=== PATIENT | male | born 1950 | race Caucasian/White ===

== ENCOUNTER → 2018-05-27 07:40 | Outpatient (CLI) | payer MEDICARE, OTHER, SELFPAY ==
[2018-05-27 08:11] LABS: Add Manual Diff / Slide Review NO; Basophils Percent Auto 0.4 % (0-2); Eosinophils Percent Auto 1.9 % (2-4); Hematocrit 43.5 % (41-53); Hemoglobin 14.7 g/dL (13.5-17.5); Lymphocytes Percent Auto 26.6 % (25-40); Mean Corpuscular HGB Conc 33.8 % (30-36); Mean Corpuscular Hemoglobin 30.2 PG (26-34); Mean Corpuscular Volume 89.3 fL (80-100); Monocytes Percent Auto 7.7 % (3-14); Neutrophils Absolute Auto 4400 /uL (3000-5900); Neutrophils Percent Auto 63.4 % (50-75); Platelet Count 218 X10^3/uL (150-400); Red Blood Cell Count 4.86 X10^6/uL (4.5-5.9); Red Cell Distribution Width 14.4 % (11.6-14.8)
[2018-05-27 08:24] LABS: Alanine Aminotransferase 29 IU/L (21-72); Albumin 4.1 g/dL (3.5-5.0); Albumin Globulin Ratio 1.2 (1.0-2.8); Alkaline Phosphatase 88 U/L (38-126); Aspartate Aminotransferase 26 IU/L (17-59); BUN Creatinine Ratio 17.3 (6-22); Blood Urea Nitrogen 19 mg/dL (9-20); Calcium 9.5 mg/dL (8.4-10.2); Carbon Dioxide 27 mmol/L (22-32); Chloride 105 mmol/L (98-107); Cholesterol 154 mg/dL (140-199); Estimated Glomerular Filt Rate > 60.0 mL/min (>60); Globulin 3.3 g/dL (1.7-4.1); Glucose 102 mg/dL (80-110); HDL Cholesterol 61 mg/dL (40-60); HEMOLYSIS < 15 (0-50); LDL Cholesterol Calculated 80 mg/dL (<100); Potassium 4.2 mmol/L (3.4-5.1); Sodium 142 mmol/L (137-145); Total Protein 7.4 g/dL (6.3-8.2); Triglycerides 64 mg/dL (35-150)
[2018-05-27 09:19] LABS: Thyroid Stimulating Hormone 4.46 uIU/mL (0.47-4.68)
== END ==
PROVIDERS: Family Provider Family Medicine; PCP Family Medicine; Visit Provider Family Medicine
DX: E78.5 Hyperlipidemia, unspecified (principal); I10 Essential (primary) hypertension
CPT/HCPCS: 36415; 80053; 80061; 84443; 85025

== ENCOUNTER → 2018-12-27 08:29 | Outpatient (CLI) | payer MEDICARE, OTHER, SELFPAY ==
[2018-12-27 11:49] LABS: Add Manual Diff / Slide Review NO; Basophils Absolute Auto 300 /uL (0-100); Basophils Percent Auto 4.6 % (0-2); Eosinophils Absolute Auto 100 /uL (0-450); Eosinophils Percent Auto 2.2 % (2-4); Hematocrit 42.8 % (41-53); Hemoglobin 14.3 g/dL (13.5-17.5); Lymphocytes Absolute Auto 1500 /uL (1100-4500); Lymphocytes Percent Auto 22.9 % (25-40); Mean Corpuscular HGB Conc 33.5 % (30-36); Mean Corpuscular Hemoglobin 29.9 PG (26-34); Mean Corpuscular Volume 89.3 fL (80-100); Monocytes Absolute Auto 500 /uL (0-900); Monocytes Percent Auto 7.7 % (3-14); Neutrophils Absolute Auto 4100 /uL (1500-7000); Neutrophils Percent Auto 62.6 % (50-75); Platelet Count 224 X10^3/uL (150-400); Red Cell Distribution Width 14.1 % (11.6-14.8); White Blood Cell Count 6.6 X10^3/uL (4.5-11.0)
[2018-12-27 12:17] LABS: Alanine Aminotransferase 31 IU/L (21-72); Albumin 4.3 g/dL (3.5-5.0); Albumin Globulin Ratio 1.3 (1.0-2.8); Alkaline Phosphatase 76 U/L (38-126); Aspartate Aminotransferase 28 IU/L (17-59); BUN Creatinine Ratio 20.8 (6-22); Bilirubin Total 0.8 mg/dL (0.2-1.3); Blood Urea Nitrogen 25 mg/dL (9-20); Calcium 9.7 mg/dL (8.4-10.2); Carbon Dioxide 27 mmol/L (22-32); Chloride 103 mmol/L (98-107); Cholesterol 160 mg/dL (140-199); Estimated Glomerular Filt Rate > 60.0 mL/min (>60); Globulin 3.3 g/dL (1.7-4.1); Glucose 87 mg/dL (80-110); HDL Cholesterol 59 mg/dL (40-60); HEMOLYSIS < 15 (0-50); LDL Cholesterol Calculated 90 mg/dL (<100); Potassium 4.4 mmol/L (3.4-5.1); Sodium 140 mmol/L (137-145); Total Protein 7.6 g/dL (6.3-8.2); Triglycerides 53 mg/dL (35-150)
[2018-12-27 12:36] LABS: TSH w/ Reflex to FT4 3.79 uIU/mL (0.47-4.68)
[2018-12-27 12:37] LABS: Prostate Specific Antigen Scrn 0.642 ng/mL (0.1-4.0)
== END ==
PROVIDERS: Family Provider Family Medicine; PCP Family Medicine; Visit Provider Family Medicine
DX: E78.5 Hyperlipidemia, unspecified (principal); I10 Essential (primary) hypertension; N40.0 Benign prostatic hyperplasia without lower urinary tract symptoms
CPT/HCPCS: 36415; 80053; 80061; 84443; 85025; G0103

== ENCOUNTER → 2019-02-01 11:04 | Outpatient (CLI) | payer MEDICARE, OTHER, SELFPAY ==
--- NOTE | 2019-02-01 | DI.CT.S_ITS ---
PROCEDURE: CT KIDNEY URETER BLADDER (KUB) INDICATIONS: KIDNEY STONES TECHNIQUE: Noncontrast 5 mm thick sections acquired from the diaphragms to the symphysis. 5 mm thick coronal and sagittal reformats were then performed. For radiation dose reduction, the following was used: automated exposure control, adjustment of mA and/or kV according to patient size. COMPARISON: [facility], CT, KIDNEY/ URETER/BLADDER, 06/22/2013, 12:30. FINDINGS: Image quality: There is metallic streak artifact from patient's left hip prosthesis. Lung bases: There is mild scarring or atelectasis in the lung bases. Heart size is normal. There is a small hiatal hernia. Urinary system: There are multiple bilateral nonobstructing renal stones, approximately 8 on the right with the largest measuring up to 1 cm and 3 on the left with the largest measuring up to 2 mm. No evidence of hydronephrosis. There is nonspecific perinephric stranding bilaterally. An ovoid slightly hyperdense lesion is demonstrated within the right kidney measuring up to 2.0 cm suggestive of a hyperdense cyst versus a solid mass. There are a few cysts within the left kidney measuring up to 4.6 cm. Both ureters appear non-dilated throughout their expected courses. No calcified bladder stones. There is mild concentric bladder wall thickening. Other solid organs: Noncontrast evaluation of the liver demonstrates no focal hepatic lesions. The gallbladder appears within normal limits without calcified gallstones. Pancreas is normal in contours. Spleen is normal in size. No adrenal nodules. Peritoneum and bowel: Unenhanced bowel loops demonstrate normal wall thickness and caliber. The appendix is normal in appearance. There is colonic diverticulosis without acute diverticulitis. No free fluid or air. Nodes and vessels: No retroperitoneal or mesenteric adenopathy by size criteria. Aorta and inferior vena cava are normal in caliber. Abdominal wall: No ventral hernias. Pelvis: No free pelvic fluid. No inguinal hernias or adenopathy. Bones: No suspicious bony lesions. There is a left hip prosthesis partially visualized. Periarticular heterotopic ossification is demonstrated around the left hip. Moderate to severe degeneration is demonstrated in the right hip. No vertebral body compression fractures. IMPRESSION: 1. Bilateral nephrolithiasis without evidence of obstructive uropathy. 2. Hyperdense lesion in the right kidney consistent with a hyperdense cyst or renal mass. Further evaluation may be obtained with renal ultrasound or a renal mass protocol CT or MRI. 3. No evidence of appendicitis. 4. Colonic diverticulosis without acute diverticulitis. Dictated by: Vic Rahman M.D. on 02/01/2019 at 13:55 Approved by: Vic Rahman M.D. on 02/01/2019 at 14:18
== END ==
PROVIDERS: Family Provider Family Medicine; PCP Family Medicine; Visit Provider Urology
DX: N20.0 Calculus of kidney (principal); N28.1 Cyst of kidney, acquired; K44.0 Diaphragmatic hernia with obstruction, without gangrene; K57.90 Diverticulosis of intestine, part unspecified, without perforation or abscess without bleeding; M16.11 Unilateral primary osteoarthritis, right hip; Z96.642 Presence of left artificial hip joint
CPT/HCPCS: 74176

== ENCOUNTER → 2020-07-05 14:02 | Outpatient (CLI) | payer MEDICARE, OTHER, SELFPAY ==
--- NOTE | 2020-07-05 14:04 | DI.RAD.S_ITS ---
PROCEDURE: XR LUMBAR SPINE MIN 4V INDICATIONS: lbp TECHNIQUE: 5 views of the lumbar spine were acquired. COMPARISON: None. FINDINGS: Bones: 5 nonrib-bearing vertebrae are present. There is normal bony alignment. No vertebral body compression fractures. No suspicious bony lesions. There is moderate disc space narrowing at L3-L4, and mild disc space narrowing at L2-L3, L4-L5 and L5-S1. Moderate to severe facet arthropathy at L4-L5 and L5-S1. Note is made of left hip arthroplasty. Moderate right hip joint degeneration is present. Soft tissues: Overlying bowel gas pattern is normal. No suspicious soft tissue calcifications. Oblique images: No pars defects. 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 Dictated by: Dena Graham M.D. on 07/05/2020 at 17:44 Approved by: Dena Graham M.D. on 07/05/2020 at 17:45
--- NOTE | 2020-07-05 14:04 | DI.RAD.S_ITS ---
PROCEDURE: XR HIP W PEL IF DONE LT 2V INDICATIONS: left hip pain TECHNIQUE: AP pelvis and lateral view of the 2 hip acquired. COMPARISON: [facility], CT, KIDNEY/ URETER/BLADDER, 06/22/2013, 12:30. FINDINGS: Bones: Patient is status post left hip arthroplasty, with hardware components in expected positions. The hip joint appears congruent. The visualized bony structures appear intact. Healed fracture deformity of the left proximal femur. Dystrophic calcification adjacent to the superior aspect of the left femur. Soft tissues: Overlying postoperative changes are noted. No suspicious soft tissue densities. Right inguinal canal surgical clips. IMPRESSION: 1. Stable positioning of left hip arthroplasty. 2. Healed fracture deformity of proximal left femoral shaft. Dictated by: Paulo Joseph RRA Interpreted: Renea Dumont MD on 07/05/2020 at 14:55 Approved by: Renea Dumont MD, PhD on 07/05/2020 at 17:22
== END ==
PROVIDERS: Family Provider Family Medicine; PCP Family Medicine; Referring Provider Physical Medicine & Rehabilitation; Visit Provider Physical Medicine & Rehabilitation
DX: M25.552 Pain in left hip (principal); M54.5 Low back pain; Z96.642 Presence of left artificial hip joint; Z87.81 Personal history of (healed) traumatic fracture
CPT/HCPCS: 72110; 73502

== ENCOUNTER → 2020-07-07 10:18 | Outpatient (CLI) | payer MEDICARE, OTHER, SELFPAY ==
[2020-07-07 12:01] LABS: Add Manual Diff / Slide Review NO; Basophils Absolute Auto 0 /uL (0-100); Basophils Percent Auto 0.6 % (0-2); Eosinophils Absolute Auto 100 /uL (0-450); Eosinophils Percent Auto 1.5 % (2-4); Hematocrit 41.4 % (41-53); Hemoglobin 13.9 g/dL (13.5-17.5); Lymphocytes Absolute Auto 2100 /uL (1100-4500); Lymphocytes Percent Auto 34.2 % (25-40); Mean Corpuscular HGB Conc 33.5 % (30-36); Mean Corpuscular Hemoglobin 29.7 PG (26-34); Mean Corpuscular Volume 88.6 fL (80-100); Monocytes Absolute Auto 400 /uL (0-900); Monocytes Percent Auto 6.9 % (3-14); Neutrophils Absolute Auto 3400 /uL (1500-7000); Neutrophils Percent Auto 56.8 % (50-75); Platelet Count 217 X10^3/uL (150-400); Red Blood Cell Count 4.67 X10^6/uL (4.5-5.9); Red Cell Distribution Width 15.4 % (11.6-14.8)
[2020-07-07 12:21] LABS: Alanine Aminotransferase 40 IU/L (<50); Albumin 4.2 g/dL (3.5-5.0); Albumin Globulin Ratio 1.1 (1.0-2.8); Alkaline Phosphatase 99 U/L (38-126); Aspartate Aminotransferase 42 IU/L (17-59); BUN Creatinine Ratio 18.5 (6-22); Blood Urea Nitrogen 20 mg/dL (9-20); Calcium 9.8 mg/dL (8.4-10.2); Carbon Dioxide 26 mmol/L (22-32); Chloride 105 mmol/L (98-107); Estimated Glomerular Filt Rate > 60.0 mL/min (>60); Globulin 3.8 g/dL (1.7-4.1); Glucose 102 mg/dL (80-110); HEMOLYSIS < 15 (0-50); Potassium 4.5 mmol/L (3.4-5.1); Sodium 137 mmol/L (137-145)
== END ==
PROVIDERS: Family Provider Family Medicine; PCP Family Medicine; Referring Provider Family Medicine; Visit Provider Family Medicine
DX: E78.5 Hyperlipidemia, unspecified (principal); G45.9 Transient cerebral ischemic attack, unspecified; I10 Essential (primary) hypertension
CPT/HCPCS: 36415; 80053; 84443; 85025

== ENCOUNTER → 2020-08-17 08:47 | Outpatient (CLI) | payer MEDICARE, OTHER, SELFPAY ==
[2020-08-17 09:36] LABS: Add Manual Diff / Slide Review NO; Basophils Absolute Auto 0 /uL (0-100); Basophils Percent Auto 0.5 % (0-2); Eosinophils Absolute Auto 200 /uL (0-450); Eosinophils Percent Auto 2.5 % (2-4); Hematocrit 42.3 % (41-53); Hemoglobin 14.2 g/dL (13.5-17.5); Lymphocytes Absolute Auto 2200 /uL (1100-4500); Mean Corpuscular HGB Conc 33.6 % (30-36); Mean Corpuscular Hemoglobin 29.9 PG (26-34); Monocytes Absolute Auto 600 /uL (0-900); Monocytes Percent Auto 9.3 % (3-14); Neutrophils Absolute Auto 3400 /uL (1500-7000); Neutrophils Percent Auto 53.7 % (50-75); Platelet Count 230 X10^3/uL (150-400); Red Blood Cell Count 4.75 X10^6/uL (4.5-5.9); Red Cell Distribution Width 15.2 % (11.6-14.8); White Blood Cell Count 6.4 X10^3/uL (4.5-11.0)
[2020-08-17 10:00] LABS: Erythrocyte Sedimentation Rate 19 MM/HR (0-15)
[2020-08-17 10:07] LABS: C-Reactive Protein Quant 0.7 mg/dL (<1.0)
== END ==
PROVIDERS: Family Provider Family Medicine; PCP Family Medicine; Referring Provider Family Medicine; Visit Provider Family Medicine
DX: M25.552 Pain in left hip (principal); M54.16 Radiculopathy, lumbar region; M54.5 Low back pain
CPT/HCPCS: 36415; 85025; 85651; 86140

== ENCOUNTER → 2020-08-20 17:46 | Outpatient (CLI) | payer MEDICARE, OTHER, SELFPAY ==
--- NOTE | 2020-08-20 17:47 | DI.MRI.S_ITS ---
PROCEDURE: MR LUMBAR SPINE WO CON INDICATIONS: lumbar pain TECHNIQUE: Noncontrast sagittal T1 spin echo through the lumbar spine. Patient requested termination of the study prior to acquisition of additional sequences and planes secondary to pain COMPARISON: [facility], CR, XR LUMBAR SPINE MIN 4V, 07/05/2020, 13:31. FINDINGS: Image quality: Excellent. Alignment and Curvature: There is normal bony alignment. Bone Marrow: Mild reactive endplate changes noted adjacent the L3-L4 and L4-L5 discs. Small, benign, intraosseous hemangioma noted in the L2 vertebral body. Schmorl's nodes noted in the inferior plate of the L2, inferior endplate of L3 and superior endplate of the L4 vertebral bodies.. No acute vertebral body compression fractures. Spinal Cord: Conus medullaris terminates at the L1-L2 disc level. Visualized cord demonstrates normal signal and size. Paraspinous Soft Tissues: No paravertebral masses. L1-L2: Loss of disc signal. Mild, diffuse disc bulge. No central stenosis. Moderate bilateral neural foraminal narrowing. No neural compression. L2-L3: Loss of disc signal. Mild, diffuse disc bulge. No central stenosis. Moderate bilateral neural foraminal narrowing. No neural compression. L3-L4: Loss of disc signal and height. Moderate, diffuse disc bulge. [id number]-[id number] narrowing of the central canal. Moderate to severe right and moderate left neural foraminal narrowing with slight compression of the exiting right L3 nerve root. L4-L5: Loss of disc signal. Mild, diffuse disc bulge. Large left foraminal disc extrusion. Mild bilateral facet hypertrophy. Mild to moderate narrowing of the central canal. Moderate to severe right and severe left neural foraminal narrowing with slight compression of the exiting right L4 nerve root and marked compression of the exiting left L4 nerve root. L5-S1: Loss of disc signal and height. Mild, diffuse disc bulge. Mild bilateral facet hypertrophy. No central stenosis. Moderate bilateral neural foraminal narrowing. No neural compression. IMPRESSION: 1. Limited study secondary to patient requesting termination of the examination prior to complete image acquisition. 2. Multilevel degenerative disease. 3. Multilevel facet arthropathy. 4. Large left foraminal L4-L5 disc extrusion which causes severe left L4-L5 neural foraminal narrowing and compression of the exiting left L4 nerve root. 5. No significant central canal narrowing. 6. Moderate to severe right L3-L4 neural foraminal narrowing with compression of the exiting right L3 nerve root. Moderate to severe right and severe left L4-L5 neural foraminal narrowing with compression of the exiting L4 nerve roots. Dictated by: Renea Dumont MD, PhD on 08/21/2020 at 10:35 Approved by: Renea Dumont MD, PhD on 08/21/2020 at 10:55
== END ==
PROVIDERS: Family Provider Family Medicine; PCP Family Medicine; Referring Provider Family Medicine; Visit Provider Family Medicine
DX: M25.552 Pain in left hip (principal); M54.5 Low back pain; M51.16 Intervertebral disc disorders with radiculopathy, lumbar region; M48.061 Spinal stenosis, lumbar region without neurogenic claudication; M47.26 Other spondylosis with radiculopathy, lumbar region; M47.27 Other spondylosis with radiculopathy, lumbosacral region; M48.07 Spinal stenosis, lumbosacral region; M51.17 Intervertebral disc disorders with radiculopathy, lumbosacral region
CPT/HCPCS: 72148

== ENCOUNTER → 2020-09-27 10:18 | Outpatient (CLI) | payer MEDICARE, OTHER, SELFPAY ==
[2020-09-27 11:25] LABS: Add Manual Diff / Slide Review NO; Basophils Absolute Auto 0 /uL (0-100); Basophils Percent Auto 0.3 % (0-2); Eosinophils Absolute Auto 100 /uL (0-450); Eosinophils Percent Auto 1.5 % (2-4); Hematocrit 41.5 % (41-53); Hemoglobin 13.9 g/dL (13.5-17.5); Lymphocytes Absolute Auto 2200 /uL (1100-4500); Lymphocytes Percent Auto 32.9 % (25-40); Mean Corpuscular HGB Conc 33.5 % (30-36); Mean Corpuscular Hemoglobin 30.1 PG (26-34); Mean Corpuscular Volume 89.8 fL (80-100); Monocytes Absolute Auto 500 /uL (0-900); Monocytes Percent Auto 7.9 % (3-14); Neutrophils Absolute Auto 3900 /uL (1500-7000); Neutrophils Percent Auto 57.4 % (50-75); Platelet Count 230 X10^3/uL (150-400); Red Blood Cell Count 4.62 X10^6/uL (4.5-5.9); Red Cell Distribution Width 14.4 % (11.6-14.8); White Blood Cell Count 6.8 X10^3/uL (4.5-11.0)
[2020-09-27 11:33] LABS: BUN Creatinine Ratio 23.5 (6-22); Blood Urea Nitrogen 24 mg/dL (9-20); Calcium 9.7 mg/dL (8.4-10.2); Carbon Dioxide 27 mmol/L (22-32); Chloride 107 mmol/L (98-107); Estimated Glomerular Filt Rate > 60.0 mL/min (>60); Glucose 100 mg/dL (80-110); HEMOLYSIS < 15 (0-50); Potassium 4.9 mmol/L (3.4-5.1); Sodium 139 mmol/L (137-145)
== END ==
PROVIDERS: Family Provider Family Medicine; PCP Family Medicine; Referring Provider Orthopaedic Surgery; Visit Provider Orthopaedic Surgery
DX: Z01.818 Encounter for other preprocedural examination (principal); Z01.812 Encounter for preprocedural laboratory examination
CPT/HCPCS: 36415; 80048; 85025; 93005

== ENCOUNTER → 2020-10-10 08:27 | Outpatient (CLI) | payer MEDICARE, OTHER, SELFPAY ==
[2020-10-10 11:34] LABS: COVID19 -Nasal RAPID Negative (Negative)
== END ==
PROVIDERS: Family Provider Family Medicine; PCP Family Medicine; Visit Provider Physician Assistant
DX: Z11.59 Encounter for screening for other viral diseases (principal)
CPT/HCPCS: 87635

== ENCOUNTER → 2020-10-11 07:58 | Outpatient (CLI) | payer MEDICARE, OTHER, SELFPAY ==
--- NOTE | 2020-10-11 09:06 | PM.TREADMILL ---
Cardiac Stress Test Report Referral & Results Date Patient Seen: 10/11/20 Time Patient Seen: 09:00 Requesting provider: Carlos Sykes Indication: Pre-operative clearance; h/o STEMI Rest ECG: NSR Procedure Note: Patient presented with significant orthopedic issues that severely limited his ability to walk. We converted this to a resting Lexiscan. After both written and verbal informed consent the patient had an IV started by the diagnostic imaging RN, and then was hooked up to the treadmill monitoring system. The Lexiscan material, and then the Cardiolite tracer, were administered sequentially. An additional 3 min was spent monitoring the patient while supine on the gurney. The patient had a normal response to all infused materials. No signs or symptoms of angina. Frequent PVCs developed after materials injected. Impression: Successful Abiola protocol. Will await perfusion imaging. Please note: Actual ECG tracings can be found in the PACS system.
--- NOTE | 2020-10-12 18:18 | DI.NM.S_ITS ---
DATE OF SERVICE: 10/11/2020 PROCEDURE PERFORMED: Vasodilator pharmacologic stress and rest myocardial perfusion imaging with gating to assess ejection fraction and regional wall motion. ORDERING PROVIDER: Dr. Carlos Sykes. INDICATIONS: The patient is a 70-year-old male with an abnormal ECG requiring preoperative clearance prior to back surgery. CARDIAC STRESS: Per protocol, 0.4 mg of regadenoson was infused with a normal hemodynamic response. He had no chest discomfort. His resting ECG shows left axis deviation, but is otherwise normal. There are no significant ST-segment shifts with stress. He had occasional PVCs, briefly in a bigeminal pattern, but no complex ventricular ectopy. Per protocol, 27.4 millicuries of technetium-99m Myoview was injected and he was imaged 15 minutes later using a gated SPECT acquisition protocol. He returned the following day and was reinjected with an additional 26.2 millicuries of technetium-99m Myoview and was imaged 30 minutes later, again using a gated SPECT acquisition protocol. FINDINGS: 1. Raw data: There is fair myocardial tracer uptake. Lung/heart ratio is normal at 0.32 with a normal TID ratio 0.94. 2. Quantitated gated SPECT: Post-stress ejection fraction is estimated at 65% without any focal wall motion abnormality. Resting ejection fraction is estimated at 61% with a mildly increased resting end-diastolic volume of 132 mL. 3. Myocardial perfusion imaging: Post-stress supine images show a normal perfusion pattern without any concerning perfusion defects. The resting images show no areas of improvement. No prone images were available. IMPRESSION: 1. Normal myocardial perfusion study. 2. No evidence of myocardial ischemia or previous myocardial infarction. 3. Normal left ventricular systolic function without focal wall motion abnormality. Left ventricular volumes are at the upper limits of normal. 4. No angina or ECG evidence of ischemia with pharmacologic vasodilator stress. He had occasional PVCs, briefly in a bigeminal pattern, but no concerning complex ventricular ectopy. Jayme Lacey - BYRON/david/tiffanie doc#: [id number]/job#: [id number] dd: 10/12/2020 12:45:00 dt: 10/12/2020 17:45:00 DICTATING MD/COPIES TO: Ayden Adorno MD; Carlos Sykes MD COPIES MNE: CARMINA;
== END ==
PROVIDERS: Family Provider Family Medicine; PCP Family Medicine; Referring Provider Family Medicine; Visit Provider Family Medicine
DX: I21.19 ST elevation (STEMI) myocardial infarction involving other coronary artery of inferior wall (principal)
CPT/HCPCS: 78452; 93016; 93017; 93018; A9502; J2785

== ENCOUNTER → 2020-11-17 08:35 | Outpatient (CLI) | payer MEDICARE, OTHER, SELFPAY ==
[2020-11-17 11:07] LABS: COVID19 -Nasal RAPID Negative (Negative)
== END ==
PROVIDERS: Family Provider Family Medicine; PCP Family Medicine; Visit Provider Nurse Practitioner
DX: Z01.812 Encounter for preprocedural laboratory examination (principal); Z20.828 Contact with and (suspected) exposure to other viral communicable diseases
CPT/HCPCS: 87635; C9803

== ENCOUNTER 2020-11-20 06:14 | Day surgery (SDC) | payer MEDICARE, OTHER, SELFPAY ==
[2020-11-14 14:53] VITALS: BMI 34.0
[2020-11-20] VITALS (8 sets, daily range): BP systolic 83–160; BP diastolic 50–86; PULSE 52–58; RESP 10–16; TEMP 36.2–36.7; O2SAT 92–97; BMI 34.0
--- NOTE | 2020-11-20 | DI.RAD.S_ITS ---
PROCEDURE: XR LUMBAR SPINE 2-3V INDICATIONS: DISCECTOMY TECHNIQUE: 2 views of the lumbar spine were acquired. COMPARISON: [facility], MR, MR LUMBAR SPINE WITHOUT CONTRAST, 09/24/2020, 6:58. [facility], CR, XR LUMBAR SPINE MIN 4V, 07/05/2020, 13:31. FINDINGS: 2 spot fluoroscopic intraoperative images demonstrating surgical instrumentation with the tips projecting in the posterior paraspinal soft tissues at the level of L4-L5. Dictated by: Louis Mart M.D. on 11/20/2020 at 13:46 Approved by: Louis Mart M.D. on 11/20/2020 at 14:01
[2020-11-20] MEDS: LACTATED RINGERS 1,000 ML 42 ML IV ×2 (06:44→09:37)
--- NOTE | 2020-11-20 07:06 | PM.PREOP ---
Pre-operative Note COVID-19 COVID-19 status: Negative Result date/Date tested (Pos, Neg/Pending): 11/17/20 Interval Note History & Physical reviewed/Exam performed by Physician: Yes Changes to H&P: No
[2020-11-20] MEDS: ACETAMINOPHEN 325 MG TABLET 975 MG PO (07:12)
[2020-11-20] MEDS: CEFAZOLIN 2 GM/100 ML FROZ.PIGGY IV (08:15)
[2020-11-20] MEDS: THROMBIN (RECOMBINANT) 5,000 UNIT VIAL 5000 UNIT TOP (08:49)
[2020-11-20] MEDS: BUPIVACAINE 0.25% (PF) 8 ML, fentaNYL 100 MCG INJ (08:49)
[2020-11-20] MEDS: SODIUM CHLORIDE 0.9% 1,000 ML, GENTAMICIN 80 MG IRR (08:50)
[2020-11-20] MEDS: VANCOMYCIN 1,000 MG VIAL 1000 MG TOP (08:52)
--- NOTE | 2020-11-20 10:02 | PM.OP.1 ---
Operative Date/Time/Diagnoses Date of procedure: 11/20/20 Time of procedure: 10:02 Pre-op diagnosis: L4-5 disc herniation with radiculopathy Post-op diagnosis: same Procedure & Clinicians Procedure: Left L4-5 far lateral diskectomy Use of microscope Placement of epidural catheter Same procedure as scheduled: Yes Indications: [age] old male with intractable symptoms from a far lateral disc herniation at L4-5. They had failed conservative management and requested operative intervention. Risks and benefits of surgery were discussed and appropriate consents were obtained. Surgeon: Andres Hines Cranberry Grower: Rona Pablo Anesthesia Type: General Operative Notes Findings: None Closure Type: primary Specimen(s): none sent Estimated Blood Loss (mL): 10 Procedure in detail: Patient was brought to the operating room and intubated on the table. A time-out was performed. There were rolled over the well-padded prone position on the Iggy table. The back was prepped and draped in standard sterile fashion. Preoperative antibiotics were given. Using fluoroscopy, a 3 cm incision was made to the well marked left of the midline at the L4-5 level, starting lateral to the facets on the AP x-ray. We used Bovie to come down to and split the fascia. We then used the NuVasive MaXcess dilators with fluoroscopy and then opened our retractors, docking them on the L3-4 and L4-5 facets. The soft tissue was cleared off with Bovie, a marker was placed, an x-ray was taken to confirm positioning. We then brought in the microscope. We continued to clear off until we could visualize the pars. The bur was used to remove part of the undersurface of the L3-4 facet as well as the superior aspect of the L4-5 facet. We used a curette to free up the transverse ligament and peel this back and removed with a Kerrison. The nerve root was completely in the middle the field and carefully dissected away until we could retracted expose the disc underneath. An annulotomy was performed and a pituitary was used to perform a diskectomy. We also used a Kerrison to undermined the superior aspect of the facet as well as underneath the pars until the neural foramen was wide open.. The ball probe was swept underneath the dura along the disc to make sure there were no further loose fragments. This was also placed into the disc and moved around to make sure there were no further loose fragments. Once everything was adequately decompressed, the wound was copiously irrigated. An epidural catheter was filled with 100 mcg of fentanyl and 8 mL of 0.25% Marcaine. The dura was carefully advanced through the foramen into the canal and the catheter was advanced 6 cm cephalad. The retractor was removed and the fascia was closed. The epidural catheter was then injected without resistance and removed. Vancomycin powder was placed in the wound. Superficial and skin were closed. Sterile dressing was placed. The patient was then rolled over, transferred to the stretcher, and brought to recovery room without complications. Complications: none Post-operative Condition: stable Disposition: PACU Plan for aftercare: Outpatient. Limited bending twisting lifting for the 1st 2 weeks and then may get back to routine activity after his postop check.
--- NOTE | 2020-11-20 10:30 | SUR.PHASEI ---
2nd Liter IVF wide open due to low bp.
--- NOTE | 2020-11-20 11:23 | SUR.OPER ---
Late Entry-Prone on spine table, head in foam head support, padded chest and pelvic supports, gel pad at knees, lower legs supported by pillows; nipples, genitalia and toes free of pressure, arms secured on foam padded arm boards at <90 degrees abduction. Tape over blanket at thigh secured to table.
--- NOTE | 2020-11-20 11:25 | SUR.PHASEII ---
1120 Discharged patient in stable condition with prescriptions for hydrocodone and vistaril. All discharge instructions discussed with patient and significant other. V/U.
== END 2020-11-20 11:23 | disposition home or self-care (01) ==
PROVIDERS: Family Provider Family Medicine; PCP Family Medicine; Referring Provider Family Medicine; Visit Provider Orthopaedic Surgery
PROC: (CPT 63030; principal; 2020-11-20 07:45)
DX: M51.16 Intervertebral disc disorders with radiculopathy, lumbar region (principal); M48.062 Spinal stenosis, lumbar region with neurogenic claudication; I10 Essential (primary) hypertension; F32.9 Major depressive disorder, single episode, unspecified
CPT/HCPCS: 63030; 72100; 76000; 82962; J0330; J0690; J1100; J2250; J2405; J2704; J3010

== ENCOUNTER → 2021-01-14 07:52 | Outpatient (CLI) | payer MEDICARE, OTHER, SELFPAY ==
[2021-01-14 08:26] LABS: Add Manual Diff / Slide Review NO; Basophils Absolute Auto 0 /uL (0-100); Basophils Percent Auto 0.3 % (0-2); Eosinophils Absolute Auto 200 /uL (0-450); Eosinophils Percent Auto 2.8 % (2-4); Hematocrit 40.2 % (41-53); Hemoglobin 13.4 g/dL (13.5-17.5); Lymphocytes Absolute Auto 2500 /uL (1100-4500); Mean Corpuscular HGB Conc 33.3 % (30-36); Mean Corpuscular Hemoglobin 29.7 PG (26-34); Mean Corpuscular Volume 89.2 fL (80-100); Monocytes Absolute Auto 500 /uL (0-900); Monocytes Percent Auto 6.9 % (3-14); Neutrophils Absolute Auto 4400 /uL (1500-7000); Platelet Count 230 X10^3/uL (150-400); Red Blood Cell Count 4.51 X10^6/uL (4.5-5.9); Red Cell Distribution Width 14.5 % (11.6-14.8); White Blood Cell Count 7.7 X10^3/uL (4.5-11.0)
[2021-01-14 08:41] LABS: Alanine Aminotransferase 21 IU/L (<50); Albumin 3.8 g/dL (3.5-5.0); Albumin Globulin Ratio 1.3 (1.0-2.8); Alkaline Phosphatase 99 U/L (38-126); Aspartate Aminotransferase 27 IU/L (17-59); BUN Creatinine Ratio 16.8 (6-22); Bilirubin Total 0.6 mg/dL (0.2-1.3); Blood Urea Nitrogen 17 mg/dL (9-20); Calcium 9.5 mg/dL (8.4-10.2); Carbon Dioxide 26 mmol/L (22-32); Chloride 106 mmol/L (98-107); Cholesterol 160 mg/dL (140-199); Estimated Glomerular Filt Rate > 60.0 mL/min (>60); Glucose 100 mg/dL (80-110); HDL Cholesterol 64 mg/dL (40-60); HEMOLYSIS < 15 (0-50); LDL Cholesterol Calculated 81 mg/dL (<100); Potassium 4.2 mmol/L (3.4-5.1); Sodium 137 mmol/L (137-145); Total Protein 6.8 g/dL (6.3-8.2); Triglycerides 75 mg/dL (35-150)
[2021-01-14 09:09] LABS: Prostate Specific Antigen 0.894 ng/mL (0.10-4.00); TSH w/ Reflex to FT4 4.57 uIU/mL (0.47-4.68)
== END ==
PROVIDERS: Family Provider Family Medicine; PCP Family Medicine; Referring Provider Family Medicine; Visit Provider Family Medicine
DX: E78.5 Hyperlipidemia, unspecified (principal); N40.0 Benign prostatic hyperplasia without lower urinary tract symptoms; I10 Essential (primary) hypertension
CPT/HCPCS: 36415; 80053; 80061; 84153; 84443; 85025

== ENCOUNTER → 2021-02-04 09:49 | Outpatient (CLI) | payer MEDICARE, OTHER, SELFPAY ==
[2021-02-04 11:33] LABS: COVID19 -Nasal RAPID Negative (Negative)
== END ==
PROVIDERS: Family Provider Family Medicine; PCP Family Medicine; Visit Provider Surgery
DX: Z20.822 Contact with and (suspected) exposure to COVID-19 (principal)
CPT/HCPCS: 87635; C9803

== ENCOUNTER 2021-02-05 07:27 | Day surgery (SDC) | payer MEDICARE, OTHER, SELFPAY ==
[2021-02-05 08:07] VITALS: BP 154/92; PULSE 61; RESP 16; TEMP 36.9; O2SAT 96; BMI 34.7
[2021-02-05] MEDS: SODIUM CHLORIDE 0.9% 1,000 ML 200 ML IV (08:27)
--- NOTE | 2021-02-05 08:38 | P.HP_ITS ---
History of Present Illness History of Present Illness Date Patient Seen: 02/05/21 Time Patient Seen: 08:38 Chief complaint: SDC Narrative: This is a 70-year-old man who has had screening colonoscopy every 5 years as recommended by his employer. He has never had an abnormal colonoscopy per him. He denies any melena, hematochezia, unexplained abdominal pain, unexplained weight loss. ROS positive for sleep apnea, enlarged prostate, kidney stones, TIA in 2016, de pression. Thirteen system review is otherwise negative other than as mentioned below and in HPI. PE: GENERAL: Well groomed and cooperative. Appears stated age. Answers questions promptly and appropriately. Vital signs noted. HENT: Normocephalic, atraumatic. Hearing intact. EYES: Conjunctiva pink, sclera white, no periorbital swelling. CARDIOVASCULAR: Regular rate. No pedal edema. RESPIRATORY: Non-tachypneic, breathing comfortably on room air. GASTROINTESTINAL: Abdomen soft and non-distended GENITALURINARY: No flank tenderness. MUSCULOSKELETAL: Equal tone and mass bilaterally. SKIN: Warm, dry, soft, appropriate color for ethnicity. No other lesions, rashes, or wounds. NEURO: Alert and Oriented X 3. No gross sensory deficits, or cognitive issues. PSYCH: Appropriate affect and mood. 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) Sleep apnea (2009) Surgical History Anesthesia History of hip replacement (2011) History of surgery (~1974) Hx of lithotripsy S/P surgery on nasal septum (~2008) Status post hernia repair (1982) Family & Social History Family History Brother Age: 63 Kidney stones Father Stroke Hypertension Heart disease High cholesterol Mother Hypertension Cancer Cancer of abdomen Sister Age: 69 Kidney stones Sister Age: 67 Kidney stones Social History: household members friend(s),none Tobacco & Substance use: Tobacco type cigarettes Smoking Status Former smoker alcohol intake current alcohol intake frequency a few times a month Substance Use Type does not use Meds Home Medications and Allergies Home Medications Medication Instructions Recorded Confirmed Type aspirin 81 mg tablet,delayed 81 mg PO DAILY 01/17/20 02/05/21 History release cholecalciferol (vitamin D3) 100 4,000 unit PO DAILY 01/17/20 02/05/21 History mcg (4,000 unit) capsule allopurinol 300 mg tablet 300 mg PO QDAY #90 tab 01/08/21 02/05/21 Rx atorvastatin 80 mg tablet 80 mg PO HS #90 tab 01/08/21 02/05/21 Rx losartan 100 mg tablet 100 mg PO QDAY #90 tab 01/08/21 02/05/21 Rx metoprolol succinate 50 mg 50 mg PO QDAY #90 tab 01/08/21 02/05/21 Rx tablet,extended release 24 hr potassium chloride 10 mEq 10 meq PO DAILY #90 cap 01/08/21 02/05/21 Rx capsule,extended release tamsulosin 0.4 mg capsule 0.4 mg PO DAILY #90 cap 01/08/21 02/05/21 Rx Allergies Allergy/AdvReac Type Severity Reaction Status Date / Time No Known Drug Allergies Allergy Unknown Verified 01/22/21 09:02 Exam Vital Signs (past 8 hours): - 02/05/21 08:07 Temperature 98.4 F Pulse Rate 61 Respiratory Rate 16 Blood Pressure 154/92 H Pulse Oximetry 96 Oxygen Delivery Method Room Air Assessment & Plan Assessment and plan (1) At average risk for colon cancer: Status: Acute Assessment & Plan narrative: Risks and benefits of screening colonoscopy and possible polypectomy were discussed with the patient including risk of bleeding, perforation, need for additional procedures, risks of anesthesia. The patient desires to proceed with the colonoscopy procedure. COVID-19 COVID-19 status: Negative Result date/Date tested (Pos, Neg/Pending): 02/04/21 Time Spent With Patient Time with patient: 15-24 minutes Quality VTE Deep Vein Thrombosis/Pulmonary Embolism Present on Admission: No
--- NOTE | 2021-02-05 08:40 | PM.OP.ENDO ---
Operative Date/Time/Diagnoses Date of procedure: 02/05/21 Time of procedure: 08:40 Pre-op diagnosis: Average risk for colon cancer, due for screening colonoscopy Post-op diagnosis: same (No polyps seen on today's exam. Inadequate prep to rule out anything smaller than 5 mm in size) Procedure & Clinicians Study performed: Colonoscopy Procedural sedation performed by the endoscopy Same procedure as scheduled: Yes Indications: Average risk for colon cancer, due for screening colonoscopy Surgeon: Jessica Alfaro Procedure Notes SCOAP/Timeout: Performed Procedure in detail: The patient was brought to the room and placed in left lateral decubitus position with all bony prominences padded. A time-out was performed and then the patient was given procedural sedation starting with 4 mg of Versed and 100 mcg of fentanyl. A total of 6 mg of Versed and 150 micro g of fentanyl were given for the entire procedure. Vitals were monitored throughout the procedure and remained stable. Once adequately sedated, the procedure was begun. A rectal exam was performed revealing external hemorrhoid remnant tags, otherwise normal rectal exam. The colonoscope was then introduced to the rectum and advanced to the cecum in the usual fashion. The cecum was identified by the appendiceal orifice, the mucosal tri-fold, and the ileocecal valve. The scope was then retracted while rotating side to side and examining each mucosal fold. The prep was not adequate to rule out anything small 5 mm. No polyps or masses were seen during the exam. At the conclusion of the procedure retroflexion was performed and small grade 1-2 internal hemorrhoids without stigmata of bleeding were seen. The scope was then withdrawn from the rectum the procedure was concluded. The patient tolerated the procedure well and was transferred to the PACU in stable condition. Scope withdrawal time: 8 Sedation minutes: 16 Specimen(s): none sent Complications: none Impression: No polyps found. Inadequate prep to rule out anything smaller than 5 mm. Patient should have repeat scope in 5 years due to poor prep and possibility of missing things smaller than 5 mm. Post-procedure Recommendations: Colonscopy in 5 years Follow up: as needed Disposition: PACU
[2021-02-05] MEDS: fentaNYL 250 MCG/5 ML INJ IV (08:50)
[2021-02-05] MEDS: MIDAZOLAM 5 MG/5 ML VIAL IV (08:52)
[2021-02-05 09:06] VITALS: BP 147/92; PULSE 65; RESP 10; TEMP 36.7; O2SAT 97
[2021-02-05 09:11] VITALS: BP 140/70; PULSE 65; RESP 12; O2SAT 94
[2021-02-05 09:16] VITALS: BP 150/69; PULSE 65; RESP 12; O2SAT 96
[2021-02-05 09:21] VITALS: BP 144/66; PULSE 61; RESP 18; O2SAT 94
== END 2021-02-05 10:00 | disposition home or self-care (01) ==
PROVIDERS: Family Provider Family Medicine; PCP Family Medicine; Referring Provider Family Medicine; Visit Provider Surgery
PROC: 0DJD8ZZ Inspection of Lower Intestinal Tract, Via Natural or Artificial Opening Endoscopic (ICD-10-PCS; CPT 45378; principal; 2021-02-05 08:30)
DX: Z12.11 Encounter for screening for malignant neoplasm of colon (principal); G47.30 Sleep apnea, unspecified; Z86.73 Personal history of transient ischemic attack (TIA), and cerebral infarction without residual deficits; F32.9 Major depressive disorder, single episode, unspecified; K64.0 First degree hemorrhoids; Z53.8 Procedure and treatment not carried out for other reasons
CPT/HCPCS: G0121; 99152; J2250; J3010

== ENCOUNTER → 2021-09-05 09:18 | Outpatient (CLI) | payer MEDICARE, OTHER, SELFPAY ==
[2021-09-05 11:11] LABS: Magnesium 1.5 mg/dL (1.6-2.3)
[2021-09-05 11:44] LABS: Thyroid Stimulating Hormone 2.85 uIU/mL (0.47-4.68)
--- OUTSIDE RECORDS SUMMARY | 2021-09-06 07:56 | XMS_ITS | Referral Summary ---
:1950 Author Organization [address] [address] Care Team Providers Name Role Phone Onel Primary Care Provider Reason for Referral Consultation (Routine) - Closed Specialty Diagnoses / Procedures Referred By Contact Refer red To Contact Diagnoses Chest discomfort Essential hypertension Snoring Mary Lees MD [address] [place] [address] [place], [place] [address] Referral ID Status Reason Start Date Expiration Date Visits V isits Requested Authorized [id number] Closed Specialty 08/07/2021 08/02/2022 1 1 Services Required Diagnostic Imaging (Routine) - Authorized Specialty Diagnoses / Procedures Referred By Contact Refer red To Contact Radiology Diagnoses Chest discomfort Mary Lees MD [facility] Ultrasound Procedures US RENAL ARTERIAL DOPPLER [address] [place] [address] [address] [place], [place] [phone] Referral ID Status Reason Start Expiration Visits Visits Date Date Requested Authorized [id number] Authorized Specialty 08/07/2021 08/02/2022 1 1 Services Required Diagnostic Imaging (Routine) - Closed Specialty Diagnoses / Procedures Referred By Contact Refer red To Contact Radiology Diagnoses Chest discomfort Mary Lees MD [facility] Echocardiography Procedures ECHOCARDIOGRAM COMPLETE [address] [place] [address] [address] [place], [place] [phone] Referral ID Status Reason Start Date Expiration Date Visits Requ ested Visits Authorized [id number] Closed 08/07/2021 08/02/2022 1 1 Reason for Visit Reason Comments Chest Pain Hypertension Evaluate and Treat (Routine) - Closed Specialty Diagnoses / Procedures Referred By Contact Refer red To Contact Diagnoses Chest pain, unspecified Carlos Sykes CARDIOLOGY Procedures [place] OFFICE OUTPATIENT VISIT [address] [facility] [address] [place] [address] [address] [place] [address] Phone: [phone] Fax: Referral ID Status Reason Start Date Expiration Date Visits Requ ested Visits Authorized [id number] Closed 05/02/2021 04/27/2022 1 1 Encounter Details Date Type Department Care Team Description 08/07/2021 Office Visit [facility] Mary Lees Chest disc omfort (Primary Dx); Aleisha Cardiology MD Fifi Essential hypertension; [address] Dyslipidemia; [facility], [address] Snoring; [place], [place] Idiopathic gout, unspecified chronicity, unspecified site [id number] [phone] Allergies No known active allergiesdocumented as of this encounter (statuses as of 09/05/2021) Medications Medication Sig Dispensed Refills Start Date End Date Status allopurinol Take 300 mg by 0 10/21/2017 Ac tive (ZYLOPRIM) 300 mg mouth daily. tablet aspirin 81 mg EC Take 81 mg by 0 Active tablet mouth daily. atorvastatin Take 80 mg by 0 10/21/2017 Ac tive (LIPITOR) 80 mg mouth daily. tablet citalopram (CeleXA) Take 20 mg by 0 Active 20 mg tablet mouth daily. potassium citrate Take 10 mEq by 0 10/21/2017 Active (UROCIT-K) 10 mEq mouth nightly. (1,080 mg) CR tablet tamsulosin (FLOMAX) Take 0.4 mg by 0 11/22/2014 Active 0.4 mg mouth daily. capsule,extended release 24hr HYDROcodone-acetamin Take 1-2 20 tablet 0 01/07/2018 Active ophen (NORCO) 5-325 tablets by mg mouth every 6 (six) hours as needed for moderate pain for up to 20 doses. HYDROcodone-acetamin Take 1-2 30 tablet 0 02/11/2018 Active ophen (LORCET PLUS) tablets by 10-325 mouth every 4 mgIndications: (four) hours as Nephrolithiasis needed for moderate pain. losartan (COZAAR) 3 01/28/2018 A ctive 100 mg tablet doxazosin (CARDURA) TK 1 T PO D 1 06/03/2018 Active 4 mg tablet cholecalciferol, Take 4,000 0 Ac tive vitamin D3, (VITAMIN Units by mouth D3) 4,000 unit capsule amLODIPine (NORVASC) AMLODIPINE 0 02/18/2017 Active 5 mg tablet BESYLATE 5 MG TABS chlorthalidone Take 25 mg by 0 04/30/2021 Active (HYGROTON) 25 mg mouth daily tablet cholecalciferol, Take by mouth 0 Active vitamin D3, (Vitamin D3) 100 mcg (4,000 unit) capsule carvediloL (COREG) Take 1 tablet 180 tablet 3 08/07/202108/07 Active 6.25 mg tablet (6.25 mg total) 22 by mouth 2 (two) times a day with meals metoprolol succinate 3 05/31/2018 08/07/20 Discontinued XL (TOPROL-XL) 50 mg 21 24 hr tablet documented as of this encounter (statuses as of 09/05/2021) Active Problems Problem Noted Date Chest discomfort 08/07/2021 Essential hypertension 08/07/2021 Dyslipidemia 08/07/2021 Idiopathic gout 08/07/2021 Snoring 08/07/2021 Nephrolithiasis 01/07/2018 Overview: Added automatically from request for farhad wall [id number] documented as of this encounter (statuses as of 09/05/2021) Social History Tobacco Use Types Packs/Day Years Used Date Former Smoker Quit: 1975 Smokeless Tobacco: Never Used Alcohol Use Standard Drinks/Week Comments Yes 2 (1 standard drink = 0.6 oz pure alcoho l) Sex Assigned at Date Recorded Not on file Job Start Date Occupation Industry Not on file Not on file Not on file documented as of this encounter Last Filed Vital Signs Vital Sign Reading Time Taken Comments Blood Pressure 132/70 08/07/2021 9:51 AM PDT Pulse 56 08/07/2021 9:08 AM PDT Temperature - - Respiratory Rate - - Oxygen Saturation - - Inhaled Oxygen Concentration - - Weight 109 kg (241 lb) 08/07/2021 9:08 AM PDT Height 175.3 cm (5' 9) 08/07/2021 9:08 AM PDT Body Mass Index 35.59 08/07/2021 9:08 AM PDT documented in this encounter Progress Notes Mary Lees MD - 08/07/2021 9:00 AM PDT Images from the original note were not included. Patient Education Chronic Hypertension WHAT YOU NEED TO KNOW: Hypertension is high blood pressure. Your blood pressure is the force of your blood moving against the cerda of your arteries. Hypertension causes your blood pressure to get so high that your heart hasto work much harder than normal. This can damage your heart. Even if you have hypertension for years, lifestyle changes, medicines, or both can help bring your blood pressure to normal. DISCHARGE INSTRUCTIONS: Call 911 for any of the following: ?? You have chest pain. ?? You have any of the following signs of a heart attack: ? Squeezing, pressure, or pain in your chest ? You may also have any of the following: ?? Discomfort or pain in your back, neck, jaw, stomach, or arm ?? Shortness of breath ?? Nausea or vomiting ?? Lightheadedness or a sudden cold sweat ?? You become confused or have difficulty speaking. ?? You suddenly feel lightheaded or have trouble breathing. Return to the emergency department if: ?? You have a severe headache or vision loss. ?? You have weakness in an arm or leg. Contact your healthcare provider if: ?? You feel faint, dizzy, confused, or drowsy. ?? You have been taking your blood pressure medicine but your pressure is higher than your provider says it should be. ?? You have questions or concerns about your condition or care. Medicines: You may need any of the following: ?? Antihypertensives may be used to help lower your blood pressure. Several kinds of medicines are available. Your healthcare provider may change the medicine or medicines you currently take. This maybe needed if your blood pressure is often high when you check it at home or you are having other prob lems with blood pressure control. ?? Diuretics help decrease extra fluid that collects in your body. This will help lower your BP. You may urinate more often while you take this medicine. ?? Cholesterol medicine helps lower your cholesterol level. A low cholesterol level helps prevent heart disease and makes it easier to control your blood pressure. ?? Take your medicine as directed. Contact your healthcare provider if you think your medicine is not helping or if you have side effects. Tell him or her if you are allergic to any medicine. Keep a list of the medicines, vitamins, and herbs you take. Include the amounts, and when and why you take them. Bring the list or the pill bottles to follow-up visits. Carry your medicine list with you in caseof an emergency. Follow up with your healthcare provider as directed: You will need to return to have your blood pressure checked and to have other lab tests done. Write down your questions so you remember to ask themduring your visits. Stages of hypertension: ?? Normal blood pressure is 119/79 or lower . Your healthcare provider may only check your blood pressure each year if it stays at a normal level. ?? Elevated blood pressure is 120/79 to 129/79 . This is sometimes called prehypertension. Your healthcare provider may suggest lifestyle changes to help lower your blood pressure to a normal level. Heor she may then check it again in 3 to 6 months. ?? Stage 1 hypertension is 130/80 to 139/89 . Your provider may recommend lifestyle changes, medication, and checks every 3 to 6 months until your blood pressure is controlled. ?? Stage 2 hypertension is 140/90 or higher . Your provider will recommend lifestyle changes and have you take 2 kinds of hypertension medicines. You will also need to have your blood pressure checked monthly until it is controlled. Manage chronic hypertension: ?? Check your blood pressure at home. Avoid smoking, caffeine, and exercise at least 30 minutes before checking your blood pressure. Sit and rest for 5 minutes before you take your blood pressure. Extend your arm and support it on a flat surface. Your arm should be at the same level as your heart. Follow the directions that came with your blood pressure monitor. Check your blood pressure 2 times, 1 minute apart, before you take your medicine in the morning. Also check your blood pressure before your evening meal. Keep a record of your readings and bring it to your follow-up visits. Ask your healthcare provider what your blood pressure should be. ?? Manage any other health conditions you have. Health conditions such as diabetes can increase your risk for hypertension. Follow your healthcare provider's instructions and take all your medicines as directed. Talk to your healthcare provider about any new health conditions you have recently developed. ?? Ask about all medicines. Certain medicines can increase your blood pressure. Examples include oral control pills, decongestants, herbal supplements, and NSAIDs, such as ibuprofen. Your healthcare provider can tell you which medicines are safe for you to take. This includes prescription and ov je-cxe-ylfvqkh medicines. Lifestyle changes you can make to lower your blood pressure: Your provider may want you to make more lifestyle changes if you are having trouble controlling your blood pressure. This may feel difficult over time, especially if you think you are making good changes but your pressure is still high. It might help to focus on one new change at a time. For example, try to add 1 more day of exercise, or exercise for an extra 10 minutes on 2 days. Small changes can make a big difference. Your healthcare provider can also refer you to specialists such as a dietitian who can help you make small changes. ?? Limit sodium (salt) as directed. Too much sodium can affect your fluid balance. Check labels to find low-sodium or xk-vsip-ekdsw foods. Some low-sodium foods use potassium salts for flavor. Too much potassium can also cause health problems. Your healthcare provider will tell you how much sodium and potassium are safe for you to have in a day. He or she may recommend that you limit sodium to 2,300mg a day. ?? Follow the meal plan recommended by your healthcare provider. A dietitian or your provider can give you more information on low-sodium plans or the DASH (Dietary Approaches to Stop Hypertension) eating plan. The DASH plan is low in sodium, unhealthy fats, and total fat. It is high in potassium, calcium, and fiber. ?? Exercise to maintain a healthy weight. Exercise at least 30 minutes per day, on most days of theweek. This will help decrease your blood pressure. Ask your healthcare provider about the best exercise plan for you. ?? Decrease stress. This may help lower your blood pressure. Learn ways to relax, such as deep breathing or listening to music. ?? Limit alcohol as directed. Alcohol can increase your blood pressure. A drink of alcohol is 12 ounces of beer, 5 ounces of wine, or 1?? ounces of liquor. ?? Do not smoke. Nicotine and other chemicals in cigarettes and cigars can increase your blood pressure and also cause lung damage. Ask your healthcare provider for information if you currently smoke and need help to quit. E- cigarettes or smokeless tobacco still contain nicotine. Talk to your healthcare provider before you use these products. ?? Copyright [employer] 2019 Information is for End User's use only and may not be sold, redistributed or otherwise used for commercial purposes. All illustrations and images included in CareNotes?? are the copyrighted property of [employer]. or [employer] The above information is an school aide only. It is not intended as medical advice for individual conditions or treatments. Talk to your doctor, nurse or pharmacist before following any medical regimen to see if it is safe and effective for you. Aracelis Lees MD - 08/07/2021 9:00 AM PDT Subjective Patient ID: Jena Lacey is a 71 y.o. male that had concerns including Chest Pain and Hypertension. HPI: Jena Lacey is a 71 y/o M with a PMH of HTN, HLD, PVCs referred to cardiology by Carlos Sykes MD, for chest pain and hypertension. Mr. Lacey states that he has had hypertension since he was in his 30s. A few months ago he started noticing that his blood pressure was getting higher, and stated that hishome blood pressure readings were in the 180s to the 190s and he was having chest pain twinges and headaches. He went and saw his primary care provider Dr. Sykes who added chlorthalidone 25 mg to antihypertensive regimen. Since starting chlorthalidone Mr. Delacruz states his blood pressures have been in the 140s to the 160s systolic. His headaches have resolved, but he is still having chest discomfort. His chest discomfort occurs once a month and last for a few seconds. Patient has 1 spot in the left upper part of the chest where he feels it. It is a squeezing sensation. Not very intense. No ra diation. No relationship with exertion. It happens at rest, and might wake him up at night. He denies PND, orthopnea, palpitations, syncope. He reports that he is not very active. He has always been rather sedentary, but more so due to backpain which he had a an operation on last October. He is not always in pain, and denies taking painmedication. He states he could climb 1 flight of stairs without becoming short of breath. His dietconsists of oatmeal in the morning, a tuna sandwich or hotdog at lunch, and potatoes or rice with some type of meat at dinner. He ate salmon once a week. He goes out to eat for dinner 3 times a week. He does not remember ever being assessed for sleep apnea, but does state that his girlfriend reportsthat he snores and stops breathing in his sleep. He denies a past medical history of renal dx, connective tissue disease, autoimmune disease. LABS 01/14/21: WBC 7.7, hemoglobin 13.4, hematocrit 40.2, platelet 230, sodium 137, potassium 4.2, BUN 17, creatinine 1.01, AST 27, ALT 21, total cholesterol 160, HDL 64, LDL 81, TSH 4.57 EK08/07/2021:Sinus Bradycardia Heart rate 57 bpm with left axis: Differential diagnosis left anterior fascicular block versus old inferior wall AK, QTC 415 ms ABNORMAL STRESS TEST 2019: Dr. Sykes's note reports normal stress test in 2019 but we do not have records of this. We have requested records. Past Medical History: Diagnosis Date ??? Benign localized hyperplasia of prostate with urinary obstruction ??? Calculus of kidney ??? Depression ??? Disorder History hernia Lt side ??? Erectile dysfunction ??? Essential hypertension ??? Gout ??? History of nephrolithiasis ??? History of osteomyelitis ??? Hypercholesteremia ??? Kidney stones ??? Low back pain ??? Pneumonia ??? Sleep apnea ??? Staph infection ??? STD (sexually transmitted disease) Past Surgical History: Procedure Laterality Date ??? LITHOTRIPSY ??? [place] FRAGMENT KIDNEY STONE/ ESWL Left 02/11/2018 Procedure: LEFT ESWL *KUB PRIOR*; Surgeon: Armen Vergara MD; Location: [facility] OR; Service: Urology ??? [place] FRAGMENT KIDNEY STONE/ ESWL Left 02/11/2018 Procedure: LEFT ESWL *KUB PRIOR*; Surgeon: Armen Vergara MD; Location: [facility] OR; Service: Urology ??? TOTAL HIP ARTHROPLASTY Left Family History Problem Relation Age of Onset ??? Throat cancer Father 42 Social History Socioeconomic History ??? Marital status: Unknown Spouse name: Not on file ??? Number of children: Not on file ??? Years of education: Not on file ??? Highest education level: Not on file Tobacco Use ??? Smoking status: Former Smoker Quit date: 1975 Years since quittin.7 ??? Smokeless tobacco: Never Used Substance and Sexual Activity ??? Alcohol use: Yes Alcohol/week: 2.0 standard drinks Types: 2 Standard drinks or equivalent per week ??? Drug use: No ??? Sexual activity: Defer No Known Allergies Current Medication List Sig allopurinol (ZYLOPRIM) 300 mg tablet Take 300 mg by mouth daily. amLODIPine (NORVASC) 5 mg tablet AMLODIPINE BESYLATE 5 MG TABS aspirin 81 mg EC tablet Take 81 mg by mouth daily. atorvastatin (LIPITOR) 80 mg tablet Take 80 mg by mouth daily. chlorthalidone (HYGROTON) 25 mg tablet Take 25 mg by mouth daily cholecalciferol, vitamin D3, (Vitamin D3) 100 mcg (4,000 unit) capsule Take by mouth cholecalciferol, vitamin D3, (VITAMIN D3) 4,000 unit capsule Take 4,000 Units by mouth HYDROcodone-acetaminophen (LORCET PLUS) 10-325 mg Take 1-2 tablets by mouth every 4 (four) hours asneeded for moderate pain. HYDROcodone-acetaminophen (NORCO) 5-325 mg Take 1-2 tablets by mouth every 6 (six) hours as needed for moderate pain for up to 20 doses. losartan (COZAAR) 100 mg tablet potassium citrate (UROCIT-K) 10 mEq (1,080 mg) CR tablet Take 10 mEq by mouth nightly. tamsulosin (FLOMAX) 0.4 mg capsule,extended release 24hr Take 0.4 mg by mouth daily. metoprolol succinate XL (TOPROL-XL) 50 mg 24 hr tablet (Discontinued) carvediloL (COREG) 6.25 mg tablet Take 1 tablet (6.25 mg total) by mouth 2 (two) times a day with meals citalopram (CeleXA) 20 mg tablet Take 20 mg by mouth daily. doxazosin (CARDURA) 4 mg tablet TK 1 T PO D Review of Systems Constitutional: Negative for fatigue and unexpected weight change. Eyes: Negative for visual disturbance. Respiratory: Positive for chest tightness. Negative for shortness of breath. Cardiovascular: Positive for palpitations. Negative for chest pain and leg swelling. Gastrointestinal: Negative for blood in stool. Endocrine: Negative for polydipsia. Genitourinary: Negative for hematuria. Skin: Negative for rash. Neurological: Negative for dizziness, syncope, weakness and light-headedness. Hematological: Does not bruise/bleed easily. Psychiatric/Behavioral: The patient is not nervous/anxious. Objective BP 132/70 (BP Location: Left arm, Patient Position: Sitting) Pulse (!) 56 Ht 1.753 m Wt 109kg BMI 35.59 kg/m?? Physical Exam: General Appearance: Obese, pleasant, cooperative, no apparent distress HENT: No obvious jaundice, no xanthelasma Neck: No obvious JVD Respiratory: clear to auscultation and percussion, no rales or wheeze Cardiovascular: Regular rhythm, S1-S2 normal, no S3 no S4, no significant murmur Pulses: No carotid bruit, no obvious abdominal bruit, no evidence of critical limb ischemia Abdomen: Nontender, no hepatosplenomegaly, no obvious pulsatile mass, obese Extremities: No clubbing, cyanosis or edema Neuro: Alert oriented to time place and person, no obvious motor or sensory deficit. Psych: Appropriate affect, normal mentation and memory Skin: No gangrene or ulcer Assessment/Plan Diagnoses and all orders for this visit: Chest discomfort - ECG 12 Lead (Clinic - Same Day) - ECHOCARDIOGRAM COMPLETE; Future - US RENAL ARTERIAL DOPPLER; Future - [facility] Referral to [facility] Sleep Clinic Essential hypertension - ECG 12 Lead (Clinic - Same Day) - TSH; Future - Magnesium Expires 12 Months; Future - [facility] Referral to [facility] Sleep Clinic - Aldosterone LC/MS, Serum; Future - Renin Activity, Plasma; Future Dyslipidemia Snoring - [facility] Referral to [facility] Sleep Clinic Idiopathic gout, unspecified chronicity, unspecified site Other orders - carvediloL (COREG) 6.25 mg tablet; Take 1 tablet (6.25 mg total) by mouth 2 (two) times a day with meals Assessment/Plan Comments: Mr. Lacey is a 71-year-old male referred to cardiology for chest pain and hypertension. He has had hypertension since he has been in his 30s, and still reports uncontrolled HTN on multiple BP medications He is currently taking metoprolol succinate 50 mg losartan 100 mg and was recently darted on chlor thalidone 25 mg in April. He reports his systolic blood pressures have been in the 140s to the 160s at home, and today his blood pressure was 156/80. We had a long discussion on lifestyle changes thatwill affect blood pressure. He is at high risk for sleep apnea with 7-8 points on the STOP-BANG screening questionnaire. We discussed the correlation between sleep apnea and hypertension, and referred him to sleep medicine for an eval. We also recommended a low-salt, Mediterranean diet and increasing activity level. We will discontinue metoprolol succinate and start carvedilol 6.25 mg twice daily, as it has better blood pressure lowering effect. We also ordered a renal duplex to rule out renal artery stenosis, and blood work to rule out hyperaldosteronism thyroid dx as potential culprits. Regarding his chest pain, it is atypical in nature for cardiac disease. We have requested records of his stress test that was done last year, and if it is normal we do not feel it is warranted to order another stress test. Does have multiple risk factors for coronary artery disease including family history, hypertension, and hyperlipidemia. His ASCVD risk of 25. Continue atorvastatin 80 mg daily. Lipids well controlled back in December of this year. We have ordered a TTE to assess structure and function of heart and to see if there is any LVH secondary to his longstanding hypertension. Follow-upwith this patient after these tests are done. History obtained, physical examination performed and medical decision making done in collaboration with Dr. Lees. -ALEXIS Pickering ATTENDING ADDENDUM: -ALEXIS Pickering, was present during parts of the visit with the patient and myself, to obtain preliminary history and to familiarize with the Plan of Care (POC) and Medical Decision Making (MDM) for any possible future visits and care. I performed a full history, physical exam, and MDM and then developed POC with the note as above along with my edits. This note was generated utilizing voice recognition software. While attempts have been made to correct mistakes, common errors may occur, including substitution of words that sound phonetically similar to the intended word as well as random substitution errors. Please take this into consideration and use clinical context when necessary. Electronically signed by Mary Lees MD 08/07/2021 11:40 AM documented in this encounter Plan of Treatment Upcoming Encounters Date Type Specialty Care Team Description 09/12/2021 Appointment Radiology Mary Lees MD [address] [place] [address] (Wo rk) Scheduled Orders Name Type Priority Associated Diagnoses Order S chedule TSH Lab Routine Essential hypertension Expec demetrio: 08/07/2021, Expires: 2021 Magnesium Expires 12 Lab Routine Essential hypertensi on Expected: 08/07/2021, Months Expires: 2021 US RENAL ARTERIAL Imaging Routine Chest discomfort Expect ed: 08/07/2021, DOPPLER Expires: 2021 Aldosterone LC/MS, Serum Lab Routine Essential hypert ension Expected: 08/07/2021, Expires: 2021 Renin Activity, Plasma Lab Routine Essential hyperten prakash Expected: 08/07/2021, Expires: 2021 Scheduled Referrals Name Type Priority Associated Diagnoses Order S chedule [facility] MV Referral to Outpatient Referral Routine Chest dis comfort Ordered: [facility] Essential 08/07/2021 hypertension Snoring documented as of this encounter Procedures Procedure Name Priority Date/Time Associated Diagnosis Comme nts ECG 12-LEAD Routine 08/07/2021 12:08 PM Chest discom fort Results for this PDT Essential hypertension proce leonardoe are in the results section. documented in this encounter Results ECHOCARDIOGRAM COMPLETE (09/02/2021 2:00 PM PDT) Anatomical Region Laterality Modality N/A Echocardiography Specimen [facility] [place] RADIOLOGY SYSTEM - 09/03/2021 5:08 PM PDT ? [place] + + ? Ho spital ?+---------+ : ? : ?[address]: ? : : ? : ?[address] ?: ? : : ? : ?[place], ?: ? : : ? : ? [place] [address] ?: ? : : ? : ?Phone: [phone] ?+---------+ + [phone] ? [phone] ? Echocardiogram Report + + :Name: JENA LACEY ? Stud y Date: 09/02/2021 ?Height: 69 in ??: :Hospital ? Readin [facility]Location: [facility] ?Weight: 240 lb : : ?Gender: Male ?BSA: 2.2 m2 ?: :: 1950 ? Ag e: 71 yrs ? BP: 127/78 mmHg: :Reason For Study: Chest pain ? : :Ordering Physician: PALIWAL, ? : :ADANDHU ? Performed By: Harika Andrews ? : :Referring: MARY LEES ?: + + Interpretation Summary The left ventricle is normal in size. Left ventricular systolic function is no rmal. The ejection fraction is estimated to be 60-65%. Diastolic parameters suggest a relaxatio n abnormality of the left ventricle, consistent with probable normal filling pressures. The right ventricle is mildly dilated. The right ventricular systolic function is normal. No significant valvular pathology seen. The IVC is of normal diameter and collap ses greater than 50% with a sniff. This suggests a low right atrial pressur e of 3 mm Hg. Mild atherosclerotic plaque(s) in the ao rtic arch. Procedure: ?? A two-dimensional transtho racic echocardiogram with color flow and Doppler was performed. The study chiquita lity was technically adequate. The patient was in normal sinus rhythm durin g the exam. Left Ventricle: ?? The left ventricle is normal in size. There is normal left ventricular wall thickness. There is no thrombus. Left ventricular systolic function is normal. The ejection fractio n is estimated to be 60-65%. There are no focal wall motion abnormalities. Leavitt tolic parameters suggest a relaxation abnormality of the left ventricle, consi stent with probable normal filling pressures. Right Ventricle: ?? The right ventricle is mildly dilated. The right ventricular systolic function is normal. Atria: ?? Both atria are normal in size. There is no Doppler evidence for an interatrial shunt. Mitral Valve: ?? There is mild mitral an nular calcification. The mitral valve leaflets are slightly calcified. There i s mild mitral regurgitation. Aortic Valve: ?? The aortic valve is tri leaflet. The aortic valve opens well. There is mild aortic valve sclerosis. Th ere is discrete nodular thickening of the non- coronary cusp. There is no aort ic valve stenosis. No aortic regurgitation is present. Tricuspid Valve: ?? The tricuspid valve leaflets are thickened and/or calcified, but open well. There is trace tricuspid regurgitation. The right ventricular systolic pressure is estimat ed to be at least 22 mmHg based on an estimated right atrial pressure of 3 mm Hg. Pulmonic Valve: ?? The pulmonic valve is not well visualized. There is mild pulmonic regurgitation. Great Vessels: ?? The aortic root is nor mal size. The ascending aorta is at the upper limits of normal in size. Mild ath erosclerotic plaque(s) in the aortic arch. The pulmonary artery is not well v isualized, but is probably normal size. The IVC is of normal diameter and collapses greater than 50% with a sniff. This suggests a low right atrial pressure of 3 mm Hg. Pericardium/ Pleura ?? There is no peric ardial effusion. There is no pleural effusion. MMode/2D Measurements & Calculations LVIDd: 4.1 cm ? AoV Openin.2 cm LVIDs: 2.6 cm ? LVOT diam: 2.1 cm IVSd: 1.0 cm ?Ao root diam: 3.6 cm LVPWd: 0.98 cm ?asc Aorta Diam: 3.8 cm LV leavitt. diameter/BSA (cm/m^2): 1.8 LV sys. diameter/BSA (cm/m^2): 1.2 FS: 36.1 % EPSS: 0.77 cm ? LA A2 area: 23.4 cm2 ?RA long axis: 3.4 cm LA A4 area: 17.8 cm2 ?RA area: 12.7 cm2 LA length (vol): 5.4 cm ? RA vol: 40.4 ml LA vol: 65.2 ml ? RA : 18.1 ml/m2 LA vol index: 29.2 ml/m2 ? TAPSE: 1.9 cm ? IVC diam: 0.98 cm Doppler Measurements & Calculations Ao V2 max: 141.8 cm/sec ? LVOT Max Mayco: 117.4 cm/sec Ao V2 mean: 113.8 cm/sec ?LV V1 max P.5 mmHg Ao V2 VTI: 29.9 cm ?LV V1 VTI: 23.8 cm Ao max P.0 mmHg Ao mean P.3 mmHg ? JONELLE(I,D): 2.6 cm2 ? MV E max mayco: 60.1 cm/sec JONELLE(V,D): 2.7 cm2 ? MV A max mayco: 77.3 cm/sec JONELLE indexed to BSA (cm^2/m^2): 1.2 ?MV E/A: 0.78 sev ratio: 0.80 ?Med Peak E' Mayco: 6.1 cm/sec ?E/E' med: 9.8 ?Lat Peak E' Mayco: 8.3 cm/sec ?E/E' lat: 7.2 ?E/e' average: 8.5 ? MV dec time: 0.29 sec ? TR max mayco: 218.2 cm/sec ?TR max P.0 mmHg ? PA V2 max: 76.4 cm/sec ?SV(LVOT): 78.7 ml PA V2 mean: 55.6 cm/sec PA mean P.3 mmHg PA pr(Accel): 50.7 mmHg ?Electronicall y signed by: Mary Lees on 09/03/2021 Reading Physician:05:08 PM Procedure Note Mary Lees MD - 09/03/2021 [facility] + + [facility] +---------+ : : [address] : : : : [facility] : : : : [place], : : : : [place] [address] : : : : Phone: [phone] Echocardiog crissy Report + + :Name: JENA LACEY Study Quinn e: 09/02/2021 Height: 69 in : :[facility] ReadingLo cation: [facility] Weight: 240 lb : : Gender: M janel BSA: 2.2 m2 : :: 1950 Age: 71 y rs BP: 127/78 mmHg: :Reason For Study: Chest pain : :Ordering Physician: YOANA, : :MARY Performed By: Harika Andrews : :Referring: MARY LEES : + + Interpretation Summary The left ventricle is normal in size. Left ventricular systolic function is no rmal. The ejection fraction is estimated to be 60-65%. Diastolic parameters suggest a relaxatio n abnormality of the left ventricle, consistent with probable normal filling pressures. The right ventricle is mildly dilated. The right ventricular systolic function is normal. No significant valvular pathology seen. The IVC is of normal diameter and collap ses greater than 50% with a sniff. This suggests a low right atrial pressur e of 3 mm Hg. Mild atherosclerotic plaque(s) in the ao rtic arch. Procedure: A two-dimensional transthor acic echocardiogram with color flow and Doppler was performed. The study chiquita lity was technically adequate. The patient was in normal sinus rhythm durin g the exam. Left Ventricle: The left ventricle is normal in size. There is normal left ventricular wall thickness. There is no thrombus. Left ventricular systolic function is normal. The ejection fractio n is estimated to be 60-65%. There are no focal wall motion abnormalities. Leavitt tolic parameters suggest a relaxation abnormality of the left ventricle, consi stent with probable normal filling pressures. Right Ventricle: The right ventricle i s mildly dilated. The right ventricular systolic function is normal. Atria: Both atria are normal in size. There is no Doppler evidence for an interatrial shunt. Mitral Valve: There is mild mitral radha ular calcification. The mitral valve leaflets are slightly calcified. There i s mild mitral regurgitation. Aortic Valve: The aortic valve is tril eaflet. The aortic valve opens well. There is mild aortic valve sclerosis. Th ere is discrete nodular thickening of the non- coronary cusp. There is no aort ic valve stenosis. No aortic regurgitation is present. Tricuspid Valve: The tricuspid valve l eaflets are thickened and/or calcified, but open well. There is trace tricuspid regurgitation. The right ventricular systolic pressure is estimat ed to be at least 22 mmHg based on an estimated right atrial pressure of 3 mm Hg. Pulmonic Valve: The pulmonic valve is not well visualized. There is mild pulmonic regurgitation. Great Vessels: The aortic root is norm al size. The ascending aorta is at the upper limits of normal in size. Mild ath erosclerotic plaque(s) in the aortic arch. The pulmonary artery is not well v isualized, but is probably normal size. The IVC is of normal diameter and collapses greater than 50% with a sniff. This suggests a low right atrial pressure of 3 mm Hg. Pericardium/ Pleura There is no perica rdial effusion. There is no pleural effusion. MMode/2D Measurements & Calculations LVIDd: 4.1 cm AoV Openin.2 cm LVIDs: 2.6 cm LVOT diam: 2.1 cm IVSd: 1.0 cm Ao root diam: 3.6 cm LVPWd: 0.98 cm asc Aorta Diam: 3.8 cm LV leavitt. diameter/BSA (cm/m^2): 1.8 LV sys. diameter/BSA (cm/m^2): 1.2 FS: 36.1 % EPSS: 0.77 cm LA A2 area: 23.4 cm2 RA long axis: 3.4 cm LA A4 area: 17.8 cm2 RA area: 12.7 cm2 LA length (vol): 5.4 cm RA vol: 40.4 ml LA vol: 65.2 ml RA : 18.1 ml/m2 LA vol index: 29.2 ml/m2 TAPSE: 1.9 cm IVC diam: 0.98 cm Doppler Measurements & Calculations Ao V2 max: 141.8 cm/sec LVOT Max Mayco: 117.4 cm/sec Ao V2 mean: 113.8 cm/sec LV V1 max P.5 mmHg Ao V2 VTI: 29.9 cm LV V1 VTI: 23.8 cm Ao max P.0 mmHg Ao mean P.3 mmHg JONELLE(I,D): 2.6 cm2 MV E max mayco: 60.1 cm/sec JONELLE(V,D): 2.7 cm2 MV A max mayco: 77.3 cm/sec JONELLE indexed to BSA (cm^2/m^2): 1.2 MV E/A: 0.78 sev ratio: 0.80 Med Peak E' Mayco: 6.1 cm/sec E/E' med: 9.8 Lat Peak E' Mayco: 8.3 cm/sec E/E' lat: 7.2 E/e' average: 8.5 MV dec time: 0.29 sec TR max mayco: 218.2 cm/sec TR max P.0 mmHg PA V2 max: 76.4 cm/sec SV(LVOT): 78.7 ml PA V2 mean: 55.6 cm/sec PA mean P.3 mmHg PA pr(Accel): 50.7 mmHg Reading Physician:05:08 PM Performing Organization Address City/State/ZIP Code Phon e Number [facility] [address] [place] [address], U S ECG 12 Lead (Clinic - Same Day) (08/07/2021 12:08 PM PDT) Narrative Mary Lees MD - 08/07/2021 12:08 PM PDT This result has an attachment that is no t available. Result approved by Mary Lees MD on 08/07/21 documented in this encounter Visit Diagnoses Diagnosis Chest discomfort - Primary Other chest pain Essential hypertension Unspecified essential hypertension Dyslipidemia Other and unspecified hyperlipidemia Snoring Other dyspnea and respiratory abnormalit y Idiopathic gout, unspecified chronicity, unspecified site Chest discomfort Other chest pain documented in this encounter Insurance Payer Benefit Plan / Subscriber ID Effective Dates Phone Addre ss Type Group MEDICARE MEDICARE PART [id number] 2014-Presen [id number] [address] [place] [address] [employer] [employer] [id number] 2014-Presen [phone] [address] [address] [address] [place] [address] documented as of this encounter Advance Directives Documents on File Type Date Recorded Patient Night Shift Manager Explanati on POLST 02/16/2018 12:00 AM Advance Directives and Living 02/11/2018 6:08 AM Will Latest Code Status on File Code Status Date Activated Date Inactivated Comments Full Code 02/11/2018 6:24 AM 02/11/2018 3:20 PM Care Teams Associate Professor Relationship Specialty Start Date End Date Carlos Sykes PCP - General Family Medicine 05/02/21 [address] [facility] [address] [place] [address] documented as of this encounter
[2021-09-12 10:22] LABS: Renin Activity 1.297 ng/mL/hr (0.167-5.380)
== END ==
PROVIDERS: Family Provider Family Medicine; PCP Family Medicine; Referring Provider Internal Medicine Cardiovascular Disease; Visit Provider Internal Medicine Cardiovascular Disease
DX: I10 Essential (primary) hypertension (principal)
CPT/HCPCS: 36415; 82088; 83735; 84244; 84443

== ENCOUNTER → 2022-01-20 11:12 | Outpatient (CLI) | payer MEDICARE, OTHER, SELFPAY ==
[2022-01-20 13:48] LABS: Magnesium 1.8 mg/dL (1.6-2.3)
== END ==
PROVIDERS: Family Provider Family Medicine; PCP Family Medicine; Referring Provider Internal Medicine Cardiovascular Disease; Visit Provider Internal Medicine Cardiovascular Disease
DX: I10 Essential (primary) hypertension (principal)
CPT/HCPCS: 36415; 83735

== ENCOUNTER → 2022-09-22 10:30 | Outpatient (CLI) | payer MEDICARE, OTHER, SELFPAY ==
[2022-09-22 12:20] LABS: Add Manual Diff / Slide Review NO; Basophils Absolute Auto 0 /uL (0-100); Basophils Percent Auto 0.4 % (0-2); Eosinophils Absolute Auto 200 /uL (0-450); Hematocrit 38.5 % (41-53); Hemoglobin 12.9 g/dL (13.5-17.5); Lymphocytes Absolute Auto 1500 /uL (1100-4500); Lymphocytes Percent Auto 25.6 % (25-40); Mean Corpuscular HGB Conc 33.5 % (30-36); Mean Corpuscular Hemoglobin 30.2 PG (26-34); Monocytes Absolute Auto 500 /uL (0-900); Monocytes Percent Auto 7.8 % (3-14); Neutrophils Absolute Auto 3800 /uL (1500-7000); Neutrophils Percent Auto 63.2 % (50-75); Platelet Count 213 X10^3/uL (150-400); Red Blood Cell Count 4.28 X10^6/uL (4.5-5.9); Red Cell Distribution Width 14.3 % (11.6-14.8)
[2022-09-22 13:13] LABS: Alanine Aminotransferase 20 IU/L (<50); Albumin 4.1 g/dL (3.5-5.0); Albumin Globulin Ratio 1.1 (1.0-2.8); Alkaline Phosphatase 91 U/L (38-126); Aspartate Aminotransferase 24 IU/L (17-59); BUN Creatinine Ratio 20.1 (6-22); Bilirubin Total 0.9 mg/dL (0.2-1.3); Blood Urea Nitrogen 28 mg/dL (9-20); Calcium 9.8 mg/dL (8.4-10.2); Carbon Dioxide 25 mmol/L (22-32); Chloride 107 mmol/L (98-107); Cholesterol 144 mg/dL (140-199); Estimated Glomerular Filt Rate 54 mL/min (>60); Globulin 3.6 g/dL (1.7-4.1); Glucose 102 mg/dL (80-110); HDL Cholesterol 50 mg/dL (40-60); HEMOLYSIS < 15 (0-50); LDL Cholesterol Calculated 81 mg/dL (<100); Potassium 4.8 mmol/L (3.4-5.1); Sodium 140 mmol/L (137-145); Total Protein 7.7 g/dL (6.3-8.2); Triglycerides 64 mg/dL (35-150)
[2022-09-22 13:38] LABS: TSH w/ Reflex to FT4 3.38 uIU/mL (0.47-4.68)
== END ==
PROVIDERS: Family Provider Family Medicine; PCP Family Medicine; Referring Provider Family Medicine; Visit Provider Family Medicine
DX: E78.5 Hyperlipidemia, unspecified (principal); Z12.5 Encounter for screening for malignant neoplasm of prostate; I10 Essential (primary) hypertension; G45.9 Transient cerebral ischemic attack, unspecified; N40.0 Benign prostatic hyperplasia without lower urinary tract symptoms
CPT/HCPCS: 36415; 80053; 80061; 84443; 85025; G0103

== ENCOUNTER → 2022-10-06 10:29 | Outpatient (CLI) | payer MEDICARE, OTHER, SELFPAY ==
--- NOTE | 2022-10-21 16:24 | P.HOLT.S_ITS ---
Sed Special Education Teacher Report Referral & Results Date Patient Seen: 10/06/22 Requesting provider: Carlos Sykes Indication: Cardiac arrhythmia Duration of monitoring (days): 8 Diary information: There was 1 patient triggered event was associated with sinus rhythm and PACs Data: Patient's minimum heart rate was 42 beats per minute at 05:42 on 10/11/2022 Maximum sinus heart rate was 133 beats per minute at 14:00 on 10/11/2022 Maximum overall heart rate was 187 beats per minute at 14:38 on 10/11/2022 during a run of SVT Less than 1% of identified beats were ventricular or supraventricular ectopic in origin, which would classify them as rare. Patient had 34 runs of SVT with the fastest being a 13.1 second run at 187 beats per minute and this was also the longest run Patient had 3 runs of nonsustained monomorphic ventricular tachycardia the longest was 11 beats in duration There were no pauses of 3 seconds or longer episodes of atrial fibrillation identified on this study Impression: Patient with rare brief episodes of SVT as well as the 3 episodes of nonsustaine d ventricular tachycardia as above Clinical correlation suggested
== END ==
PROVIDERS: Family Provider Family Medicine; PCP Family Medicine; Referring Provider Family Medicine; Visit Provider Family Medicine
DX: I49.9 Cardiac arrhythmia, unspecified (principal)
CPT/HCPCS: 93242; 93248

== ENCOUNTER → 2022-10-22 07:58 | Outpatient (CLI) | payer MEDICARE, OTHER, SELFPAY ==
[2022-10-22 08:43] LABS: Add Manual Diff / Slide Review NO; Basophils Absolute Auto 0 /uL (0-100); Basophils Percent Auto 0.5 % (0-2); Eosinophils Absolute Auto 200 /uL (0-450); Eosinophils Percent Auto 2.9 % (2-4); Hematocrit 38.5 % (41-53); Hemoglobin 12.8 g/dL (13.5-17.5); Lymphocytes Absolute Auto 1700 /uL (1100-4500); Lymphocytes Percent Auto 27.6 % (25-40); Mean Corpuscular HGB Conc 33.1 % (30-36); Mean Corpuscular Hemoglobin 29.8 PG (26-34); Mean Corpuscular Volume 89.8 fL (80-100); Monocytes Absolute Auto 500 /uL (0-900); Monocytes Percent Auto 7.5 % (3-14); Neutrophils Absolute Auto 3800 /uL (1500-7000); Neutrophils Percent Auto 61.5 % (50-75); Platelet Count 218 X10^3/uL (150-400); Red Blood Cell Count 4.29 X10^6/uL (4.5-5.9); Red Cell Distribution Width 14.4 % (11.6-14.8); White Blood Cell Count 6.2 X10^3/uL (4.5-11.0)
[2022-10-22 09:11] LABS: Alanine Aminotransferase 24 IU/L (<50); Albumin Globulin Ratio 1.3 (1.0-2.8); Alkaline Phosphatase 93 U/L (38-126); Aspartate Aminotransferase 26 IU/L (17-59); BUN Creatinine Ratio 20.1 (6-22); Bilirubin Total 0.6 mg/dL (0.2-1.3); Blood Urea Nitrogen 27 mg/dL (9-20); Calcium 9.5 mg/dL (8.4-10.2); Carbon Dioxide 23 mmol/L (22-32); Chloride 104 mmol/L (98-107); Estimated Glomerular Filt Rate 56 mL/min (>60); Globulin 3.2 g/dL (1.7-4.1); Glucose 98 mg/dL (80-110); HEMOLYSIS < 15 (0-50); Potassium 4.6 mmol/L (3.4-5.1); Sodium 140 mmol/L (137-145); Total Protein 7.2 g/dL (6.3-8.2)
[2022-10-25 09:49] LABS: HEMOLYSIS < 15 (0-50); Iron 104 ug/dL (49-181)
[2022-10-25 10:00] LABS: Percent Iron Saturation 35 % (20-50); Total Iron Binding Capacity 293 ug/dL (261-462); Transferrin 219 mg/dL (206-381)
[2022-10-25 10:25] LABS: Ferritin 85 ng/mL (18-464)
[2022-10-25 10:40] LABS: Vitamin B12 482 pg/mL (239-931)
[2022-10-25 10:56] LABS: Folate 5.7 ng/mL (2.76-20.0)
== END ==
PROVIDERS: Family Provider Family Medicine; PCP Family Medicine; Referring Provider Family Medicine; Visit Provider Family Medicine
DX: N28.9 Disorder of kidney and ureter, unspecified (principal); R89.9 Unspecified abnormal finding in specimens from other organs, systems and tissues; D64.9 Anemia, unspecified; R53.83 Other fatigue; Z79.899 Other long term (current) drug therapy
CPT/HCPCS: 36415; 80053; 82607; 82728; 82746; 83540; 83550; 85025

== ENCOUNTER → 2022-11-25 07:29 | Outpatient (CLI) | payer MEDICARE, OTHER, SELFPAY ==
[2022-11-25 08:28] LABS: Erythrocyte Sedimentation Rate 19 MM/HR (0-15)
[2022-11-25 08:36] LABS: C-Reactive Protein Quant < 0.5 mg/dL (<1.0)
== END ==
PROVIDERS: Family Provider Family Medicine; PCP Family Medicine; Referring Provider Family Medicine; Visit Provider Family Medicine
DX: R19.7 Diarrhea, unspecified (principal)
CPT/HCPCS: 36415; 85651; 86140

== ENCOUNTER → 2022-11-27 10:46 | Outpatient (CLI) | payer MEDICARE, OTHER, SELFPAY ==
[2022-11-27 14:03] LABS: Occult Blood 1 Negative (Negative); Occult Blood 2 Negative (Negative); Occult Blood 3 Negative (Negative)
[2022-11-29 15:21] LABS: Calprotectin, Stool 19 ug/g (0-120)
== END ==
PROVIDERS: Family Provider Family Medicine; PCP Family Medicine; Referring Provider Family Medicine; Visit Provider Family Medicine
DX: R19.7 Diarrhea, unspecified (principal)
CPT/HCPCS: 82270; 83993; 87045; 87177; 87899

== ENCOUNTER → 2022-11-28 10:05 | Outpatient (CLI) | payer MEDICARE, OTHER, SELFPAY ==
--- NOTE | 2022-11-28 10:06 | DI.US.S_ITS ---
PROCEDURE: US RENAL COMPLETE INDICATIONS: kidney disease TECHNIQUE: Real-time scanning was performed of the kidneys and bladder, with image documentation. COMPARISON: None. FINDINGS: Kidneys: Kidneys are normal in size. Right kidney measures 10.4 cm long; left kidney measures 12.4 cm long. Right renal cortical thickness is 1.7 cm; left renal cortical thickness is 1.3 cm. Renal cortical echotexture is normal. No hydronephrosis . Multiple echogenic foci are seen scattered in right renal parenchyma measures up to 7 mm in size. 4 mm echogenic focus is seen in lower pole of left kidney. No suspicious solid mass lesions. 2.4 x 2.5 x 2.0 simple cyst is seen in upper pole of right kidney. 4 simple appearing cysts are seen in left renal parenchyma measures up to 4.1 x 4.9 x 5 cm in size in midpole of left kidney. Bladder: Pre-void bladder volume is 45.8 mL. Post-void residual is 0 mL. Pre-void images demonstrate no intraluminal masses or stones. On pre-void images, no ureteral jets are noted with color Doppler interrogation. (Of note, ureteral jets may not be detectable in up to 25% of cases due to insufficient differences in specific gravity between ureteral and bladder urine). Miscellaneous: No free pelvic fluid. IMPRESSION: 1. Bilateral simple appearing renal cysts and nonobstructing renal calculi as above. No solid appearing renal lesion. No hydronephrosis. 2. Normal appearing partially distended urinary bladder. Dictated by: Nadir Orellana M.D. on 11/28/2022 at 12:38 Approved by: Nadir Orellana M.D. on 11/28/2022 at 12:43
== END ==
PROVIDERS: Family Provider Family Medicine; PCP Family Medicine; Referring Provider Family Medicine; Visit Provider Family Medicine
DX: N18.9 Chronic kidney disease, unspecified (principal); N28.1 Cyst of kidney, acquired
CPT/HCPCS: 76770

== ENCOUNTER → 2022-12-23 15:00 | Outpatient (CLI) | payer MEDICARE, OTHER, SELFPAY ==
--- NOTE | 2022-12-23 15:01 | DIET.CONS ---
Dietary Consultation Note Assessment: 72y M attending [address] visit for help with diet to support new dx CKD3, and other health concerns of IBS-D and kidney stones. Pt reports first kidney stone (calcium oxalate) at 17y, had them a few times per year, multiple lithotripsies, last one in 2019, on allopurinol. For the past 72y of pts life takes one BM daily, well formed, not loose and not constipated. Pt took trip to [place] last summer on cruise ship, noticed he was scoping out bathrooms when off the ship. Since July, has normal BM in morning, then has gurgling and urgent loose stools. Pt got covid [facility] through the trip and was sent to a quarantine hotel in [facility], however, sx started before covid pna. Pt testing variety of protein, grain and fat foods to see if they induce sx, however, has not found anything yet. Pt unaware of low FODMAP diet or testing FODMAP foods for sx. Pt doesn't cook with garlic, uses onions regularly, nearly no etoh intake. Pt has cooked own meals his whole life, very little intake processed foods. Pt with eGFR 54, 56 over the past year and elevated Cr 1.3-1.4. Pt desires education so this does not progress further. Nutrition Diagnosis: altered nutrition related laboratory values (eGFR, Cr) r/t renal dysfunction, nutrition related knowledge deficit aeb pt dx CKD3, pt with eGFR 54, 56, Cr >1.2, pt consuming phosphate additives in leavening agents and bottled tea and salty proteins like sausage and chopra. Interventions: 1. Educated pt on diet to support renal health with a focus on sodium, phosphorus and protein. Practiced label reading and problem solved several meals. 2. Educated pt on diet to reduce kidney stone formation with focus on 300mg calcium with intake of oxalate foods, avoiding vitamin C supplements and getting adequate fluid intake. 3. Educated pt on high FODMAP foods and how to take out and force back in to try to induce reproducible symptoms and learn tolerance levels. Pt to pay careful attention to sugar alcohol intake as his sx sound similar to overconsumption of these SF additives. Monitoring/Evaluations: F/U prn. Pt has 3 visits annually for CKD3. Electronically Signed by: Nu Thomas 12/23/22 15:[address] [address]
== END ==
PROVIDERS: Absent Provider Family Medicine; Family Provider Family Medicine; PCP Family Medicine; Referring Provider Family Medicine
DX: N18.9 Chronic kidney disease, unspecified (principal); K58.0 Irritable bowel syndrome with diarrhea; N20.0 Calculus of kidney; Z71.3 Dietary counseling and surveillance
CPT/HCPCS: 97802

== ENCOUNTER → 2023-03-20 07:12 | Outpatient (CLI) | payer MEDICARE, OTHER, SELFPAY ==
[2023-03-20 07:41] LABS: Appearance Urine UA CLEAR; Bilirubin Urine UA NEGATIVE (NEGATIVE); Color Urine UA YELLOW; Glucose Urine UA NEGATIVE (Negative); Ketones Urine UA NEGATIVE (NEGATIVE); Leukocyte Esterase Urine UA NEGATIVE (NEGATIVE); Nitrite Urine UA NEGATIVE (Negative); Occult Blood Urine UA NEGATIVE (Negative); Protein Urine UA NEGATIVE (Negative); Urobilinogen Urine UA 0.2 E.U./dL (0.2); pH Urine UA 5.5 (4.5-8.0)
[2023-03-20 08:23] LABS: Bacteria Urine None Seen; Culture Indicated Urine Cult Not Indicated; RBC Urine None Seen (0-5/HPF); Squamous Epithelial Cell Urine None Seen (0-5/HPF); WBC Urine None Seen (0-5/HPF)
[2023-03-20 08:27] LABS: Add Manual Diff / Slide Review NO; Basophils Absolute Auto 0 /uL (0-100); Basophils Percent Auto 0.4 % (0-2); Eosinophils Absolute Auto 200 /uL (0-450); Eosinophils Percent Auto 3.5 % (2-4); Hematocrit 37.4 % (41-53); Hemoglobin 12.6 g/dL (13.5-17.5); Lymphocytes Absolute Auto 1600 /uL (1100-4500); Lymphocytes Percent Auto 25.7 % (25-40); Mean Corpuscular HGB Conc 33.7 % (30-36); Mean Corpuscular Hemoglobin 30.3 PG (26-34); Monocytes Absolute Auto 600 /uL (0-900); Monocytes Percent Auto 9.3 % (3-14); Neutrophils Absolute Auto 3900 /uL (1500-7000); Neutrophils Percent Auto 61.1 % (50-75); Platelet Count 185 X10^3/uL (150-400); Red Blood Cell Count 4.15 X10^6/uL (4.5-5.9); Red Cell Distribution Width 14.7 % (11.6-14.8); White Blood Cell Count 6.4 X10^3/uL (4.5-11.0)
[2023-03-20 08:41] LABS: BUN Creatinine Ratio 18.2 (6-22); Blood Urea Nitrogen 26 mg/dL (9-20); Calcium 9.4 mg/dL (8.4-10.2); Carbon Dioxide 23 mmol/L (22-32); Chloride 107 mmol/L (98-107); Estimated Glomerular Filt Rate 51 mL/min (>60); Glucose 98 mg/dL (80-110); HEMOLYSIS < 15 (0-50); Potassium 4.3 mmol/L (3.4-5.1); Sodium 138 mmol/L (137-145)
== END ==
PROVIDERS: Family Provider Family Medicine; PCP Family Medicine; Referring Provider Family Medicine; Visit Provider Family Medicine
DX: N18.9 Chronic kidney disease, unspecified (principal); H53.9 Unspecified visual disturbance
CPT/HCPCS: 36415; 80048; 81001; 85025

== ENCOUNTER → 2023-07-23 07:51 | Outpatient (CLI) | payer MEDICARE, OTHER, SELFPAY ==
[2023-07-23 09:55] LABS: BUN Creatinine Ratio 23.9 (6-22); Blood Urea Nitrogen 34 mg/dL (9-20); Calcium 9.5 mg/dL (8.4-10.2); Carbon Dioxide 25 mmol/L (22-32); Chloride 106 mmol/L (98-107); Estimated Glomerular Filt Rate 52 mL/min (>60); Glucose 92 mg/dL (80-110); HEMOLYSIS 19 (0-50); Potassium 4.4 mmol/L (3.4-5.1); Sodium 139 mmol/L (137-145)
== END ==
PROVIDERS: Family Provider Family Medicine; PCP Family Medicine; Referring Provider Family Medicine; Visit Provider Family Medicine
DX: G47.19 Other hypersomnia (principal); I10 Essential (primary) hypertension; N18.9 Chronic kidney disease, unspecified
CPT/HCPCS: 36415; 80048

== ENCOUNTER → 2023-11-17 10:12 | Outpatient (CLI) | payer MEDICARE, OTHER, SELFPAY ==
[2023-11-17 12:19] LABS: BUN Creatinine Ratio 19.9 (6-22); Blood Urea Nitrogen 27 mg/dL (9-20); Calcium 10.2 mg/dL (8.4-10.2); Carbon Dioxide 26 mmol/L (22-32); Chloride 104 mmol/L (98-107); Estimated Glomerular Filt Rate 55 mL/min (>60); Glucose 91 mg/dL (80-110); HEMOLYSIS < 15 (0-50); Potassium 4.7 mmol/L (3.4-5.1); Sodium 138 mmol/L (137-145)
== END ==
PROVIDERS: Family Provider Family Medicine; PCP Family Medicine; Referring Provider Family Medicine; Visit Provider Family Medicine
DX: N18.9 Chronic kidney disease, unspecified (principal)
CPT/HCPCS: 36415; 80048

== ENCOUNTER → 2024-01-28 09:11 | Outpatient (CLI) | payer MEDICARE, OTHER, SELFPAY ==
[2024-01-28 11:04] LABS: BUN Creatinine Ratio 19.6 (6-22); Blood Urea Nitrogen 27 mg/dL (9-20); Calcium 10.1 mg/dL (8.4-10.2); Carbon Dioxide 25 mmol/L (22-32); Chloride 108 mmol/L (98-107); Estimated Glomerular Filt Rate 54 mL/min (>60); Glucose 90 mg/dL (80-110); HEMOLYSIS < 15 (0-50); Potassium 4.9 mmol/L (3.4-5.1); Sodium 140 mmol/L (137-145)
[2024-01-28 11:33] LABS: Prostate Specific Antigen Scrn 1.68 ng/mL (0.1-4.0)
== END ==
PROVIDERS: Family Provider Family Medicine; PCP Family Medicine; Referring Provider Family Medicine; Visit Provider Family Medicine
DX: Z12.5 Encounter for screening for malignant neoplasm of prostate (principal); E03.9 Hypothyroidism, unspecified; G45.9 Transient cerebral ischemic attack, unspecified; R19.7 Diarrhea, unspecified; N18.9 Chronic kidney disease, unspecified
CPT/HCPCS: 36415; 80048; 84443; G0103

== ENCOUNTER → 2024-07-01 07:35 | Outpatient (CLI) | payer MEDICARE, OTHER, SELFPAY ==
--- NOTE | 2024-07-01 08:08 | DI.RAD.S_ITS ---
PROCEDURE: XR LUMBAR SPINE 2-3V INDICATIONS: rt sided lumbar back pain TECHNIQUE: 3 views of the lumbar spine were acquired. COMPARISON: [facility], CR, XR LUMBAR SPINE 2-3V, 11/20/2020, 8:50. [facility], CR, XR LUMBAR SPINE MIN 4V, 07/05/2020, 13:31. FINDINGS: Bones: Partially seen left hip arthroplasty. Moderate spondylosis of the lumbar spine and partially seen moderate right hip arthrosis. Slight leftward spinal curvature. Lumbosacral degenerative changes also present. No acute displaced fracture of the vertebral bodies. No traumatic subluxation. There is trace anterolisthesis of L4 on L5, which is likely degenerative Soft tissues: Vascular calcifications. IMPRESSION: Moderate degenerative changes. Trace anterolisthesis of L4 on L5, probably degenerative. If there is high concern for further derangement, consider MRI evaluation. Dictated by: Quinton Mckeon M.D. on 07/01/2024 at 13:25 Approved by: Quinton Mckeon M.D. on 07/01/2024 at 13:26
== END ==
PROVIDERS: Family Provider Family Medicine; PCP Family Medicine; Referring Provider Family Medicine; Visit Provider Family Medicine
DX: M43.16 Spondylolisthesis, lumbar region (principal); M54.16 Radiculopathy, lumbar region
CPT/HCPCS: 72100

== ENCOUNTER → 2024-08-01 07:08 | Outpatient (CLI) | payer MEDICARE, OTHER, SELFPAY ==
[2024-08-01 08:13] LABS: Hematocrit 39.4 % (41-53); Hemoglobin 13.3 g/dL (13.5-17.5); Mean Corpuscular HGB Conc 33.9 % (30-36); Mean Corpuscular Hemoglobin 30.7 PG (26-34); Mean Corpuscular Volume 90.7 fL (80-100); Platelet Count 207 X10^3/uL (150-400); Red Blood Cell Count 4.34 X10^6/uL (4.5-5.9); Red Cell Distribution Width 14.2 % (11.6-14.8); White Blood Cell Count 6.7 X10^3/uL (4.5-11.0)
[2024-08-01 08:16] LABS: Neutrophils Absolute Manual 4556 /uL (3000-5900); Total Cells Counted 100
[2024-08-01 08:17] LABS: RBC Morphology Normal Morphology
[2024-08-01 08:36] LABS: Albumin 3.8 g/dL (3.5-5.0); Aspartate Aminotransferase 26 IU/L (17-59); BUN Creatinine Ratio 23.8 (6-22); Blood Urea Nitrogen 34 mg/dL (9-20); Estimated Glomerular Filt Rate 51 mL/min (>60); HEMOLYSIS < 15 (0-50)
[2024-08-01 09:03] LABS: Alanine Aminotransferase 20 IU/L (<50); Albumin Globulin Ratio 1.2 (1.0-2.8); Alkaline Phosphatase 93 U/L (38-126); Bilirubin Total 0.8 mg/dL (0.2-1.3); Calcium 9.9 mg/dL (8.4-10.2); Carbon Dioxide 22 mmol/L (22-32); Chloride 107 mmol/L (98-107); Globulin 3.3 g/dL (1.7-4.1); Glucose 93 mg/dL (80-110); Potassium 4.3 mmol/L (3.4-5.1); Sodium 137 mmol/L (137-145); Total Protein 7.1 g/dL (6.3-8.2)
[2024-08-01 09:05] LABS: TSH w/ Reflex to FT4 3.97 uIU/mL (0.47-4.68)
[2024-08-01 09:10] LABS: Ferritin 69 ng/mL (18-464)
[2024-08-01 09:41] LABS: Folate 9.8 ng/mL (2.76-20.0); Vitamin B12 497 pg/mL (239-931)
== END ==
LOC: LAB 07:10
PROVIDERS: Family Provider Family Medicine; PCP Family Medicine; Referring Provider Family Medicine; Visit Provider Family Medicine
DX: N18.9 Chronic kidney disease, unspecified (principal); E03.9 Hypothyroidism, unspecified; D64.9 Anemia, unspecified
CPT/HCPCS: 36415; 80053; 82607; 82668; 82728; 82746; 84443; 85025

== ENCOUNTER → 2024-09-15 13:00 | Outpatient (CLI) | payer MEDICARE, OTHER, SELFPAY ==
--- NOTE | 2024-09-22 11:44 | DIET.OUTPTC ---
Dietary Outpatient Consultation Note Consultation Date: 09/15/2024 Assessment: 74 y M referred to dietitian for CKD3. Jayme is wanting to know about nutrition for kidney health. PMH of chronic anemia that per PCP note, is stable. Jayme has iron supplements Rx to him, but not taking as often d/t GI upset from them. Takes them on empty stomach in morning with other pills. Recc he follow up with PCP regarding need for consistent iron supplement daily and whether it would be helpful to consume with small amount of food to avoid GI upset. Diet recall: Cooks his meals, doesn't add salt Doesn't like breakfast [id number], stirfry, beans with casseroles, soups Dinner-same as above has about 3 oz meat at each of the meals Eats out less than 1-2x/wk Includes 2-3 veg servings in with his meals (i.e chops up lots of carrots, onions, celery, and other nonstarchy vegs to mix in with dishes Has fruit serving about 2-3x/wk (banana, orange, etc) Ht: 5 ft 9 in Wt: 226 lb 4 oz BMI: 33.4 UBW: - Nutrition Diagnosis: Altered nutrition related lab values r/t kidney dysfunction aeb CKD3, GFR 51 Interventions: -Discussed and provided handouts on the followin. Appropriate nutrition for CKD including sodium, label reading for sodium, recc of <2000 mg/d, lower protein needs (.8-.6g/kg), plant based protein sources, iron rich protein sources, dietary eating patterns (i.e. Mediterranean, DASH, myplate), review of what constitutes serving of vegetable/fruit 2. Looked up and compared nutrition facts labels of foods he commonly consumed (i.e. classico sauce) to assess daily sodium intake 3. Physical activity - pt wants to walk 2 miles a week Goal: monitor sodium content of sauces/canned goods added to meals,include fibrous CHO sources, walk 2 miles a week EER: 50-60 g protein (.6 g/kg per CKD 3 of adjusted IBW) Monitoring/Evaluations: f/u in 3-6 months as needed Electronically Signed by: Lisbeth Loera 09/22/24 11:[address] [address]
== END ==
PROVIDERS: Family Provider Family Medicine; PCP Family Medicine; Referring Provider Family Medicine
DX: N18.30 Chronic kidney disease, stage 3 unspecified (principal); Z71.3 Dietary counseling and surveillance; Z68.33 Body mass index [BMI] 33.0-33.9, adult
CPT/HCPCS: 97802

== ENCOUNTER → 2025-01-26 08:41 | Outpatient (CLI) | payer MEDICARE, OTHER, SELFPAY ==
[2025-01-26 09:53] LABS: Add Manual Diff / Slide Review NO; Basophils Absolute Auto 0 /uL (0-100); Basophils Percent Auto 0.5 % (0-2); Eosinophils Absolute Auto 100 /uL (0-450); Hematocrit 41.5 % (41-53); Hemoglobin 13.9 g/dL (13.5-17.5); Lymphocytes Absolute Auto 2000 /uL (1100-4500); Lymphocytes Percent Auto 28.6 % (25-40); Mean Corpuscular HGB Conc 33.6 % (30-36); Mean Corpuscular Hemoglobin 30.3 PG (26-34); Mean Corpuscular Volume 90.3 fL (80-100); Monocytes Absolute Auto 500 /uL (0-900); Monocytes Percent Auto 6.9 % (3-14); Neutrophils Absolute Auto 4300 /uL (1500-7000); Platelet Count 234 X10^3/uL (150-400); Red Cell Distribution Width 14.9 % (11.6-14.8)
[2025-01-26 10:19] LABS: Alanine Aminotransferase 25 IU/L (<50); Albumin 4.2 g/dL (3.5-5.0); Albumin Globulin Ratio 1.4 (1.0-2.8); Alkaline Phosphatase 92 U/L (38-126); Aspartate Aminotransferase 27 IU/L (17-59); Blood Urea Nitrogen 29 mg/dL (9-20); Calcium 9.9 mg/dL (8.4-10.2); Carbon Dioxide 23 mmol/L (22-32); Chloride 107 mmol/L (98-107); Cholesterol 154 mg/dL (140-199); Estimated Glomerular Filt Rate 47 mL/min (>60); Globulin 3.1 g/dL (1.7-4.1); Glucose 99 mg/dL (80-110); HDL Cholesterol 69 mg/dL (40-60); HEMOLYSIS < 15 (0-50); LDL Cholesterol Calculated 75 mg/dL (<100); Potassium 4.7 mmol/L (3.4-5.1); Sodium 140 mmol/L (137-145); Total Protein 7.3 g/dL (6.3-8.2); Triglycerides 49 mg/dL (35-150)
[2025-01-26 10:45] LABS: TSH w/ Reflex to FT4 1.84 uIU/mL (0.47-4.68)
[2025-01-26 10:46] LABS: Prostate Specific Antigen 2.28 ng/mL (0.10-4.00)
== END ==
LOC: LAB 08:42
PROVIDERS: Family Provider Family Medicine; PCP Family Medicine; Referring Provider Family Medicine; Visit Provider Family Medicine
DX: E03.9 Hypothyroidism, unspecified (principal); N18.9 Chronic kidney disease, unspecified; E78.2 Mixed hyperlipidemia; I12.9 Hypertensive chronic kidney disease with stage 1 through stage 4 chronic kidney disease, or unspecified chronic kidney disease
CPT/HCPCS: 36415; 80053; 80061; 84153; 84443; 85025

== ENCOUNTER → 2025-07-05 07:49 | Outpatient (CLI) | payer MEDICARE, OTHER, SELFPAY ==
[2025-07-05 09:33] LABS: Blood Urea Nitrogen 30 mg/dL (9-20); Calcium 9.8 mg/dL (8.4-10.2); Carbon Dioxide 25 mmol/L (22-32); Chloride 106 mmol/L (98-107); Estimated Glomerular Filt Rate 49 mL/min (>60); Glucose 98 mg/dL (70-99); HEMOLYSIS < 15 (0-50); Potassium 4.5 mmol/L (3.4-5.1); Sodium 138 mmol/L (137-145)
== END ==
PROVIDERS: Family Provider Family Medicine; PCP Family Medicine; Referring Provider Family Medicine; Visit Provider Family Medicine
DX: N18.9 Chronic kidney disease, unspecified (principal); I10 Essential (primary) hypertension
CPT/HCPCS: 36415; 80048